=== PATIENT | male | born 1930 | race Caucasian/White ===

== ENCOUNTER 2017-12-15 19:12 | Inpatient (IN) | payer MEDICARE, OTHER ==
--- NOTE | 2017-12-15 19:43 | ED PDOC ---
Arrival/HPI - General Historian: Patient - History of Present Illness Narrative History of Present Illness (Text): 12/15/17 21:34 87 year old male, whose past medical history includes hypertension, hyperlipidemia, COPD, and a rt nephrectomy due to kidney cancer (never treated with chemo), who presents to the ED complaining of redness, swelling, and pain to the left calf x 4 days. Patient states he arrived from a 12 hour flight from [place] 5-6 days ago. Patient states the next day he began experiencing symptoms. Patient visited an ED in [place], where he had bloodwork done, BUN was 40 and creatin was 1.8. Ultrasound performed, no DVT or clot was found. Pt was told he had an 11cm lesion on his knee. Pt was told of possible differential of hematoma, abscess, or cyst. Patient was d/c with no antibiotics and told to f/u with outpatient. Patient followed up with PMD, who sent patient to ED for CT for further evaluation. Patient denies any fever, chills, SOB, chest pain, back pain, neck pain, abdominal pain, n/v/d, or any other complaints. Time/Duration: < week (4 days) Symptom Onset: Sudden Symptom Course: Unchanged Activities at Onset: Light Context: Home <Sherlyn Archer PA-C - Last Filed: 12/16/17 00:24> <Gris Hurtado - Last Filed: 12/17/17 15:32> - General Chief Complaint: Lower Extremity Problem/Injury Time Seen by Provider: 12/15/17 19:42 Past Medical History - Provider Review Nursing Documentation Reviewed: Yes <Sherlyn Archer PA-C - Last Filed: 12/16/17 00:24> - Travel History If Yes, travel location?: [place] - Infectious Disease Hx of Infectious Diseases: None - Tetanus Immunization Tetanus Immunization: Unknown - Cardiac Hx Hypertension: Yes - Hematological/Oncological Hx Blood Transfusions: No Hx Blood Transfusion Reaction: No - Psychiatric Hx Depression: No Hx Emotional Abuse: No Hx Physical Abuse: No Hx Substance Use: No - Anesthesia Hx Anesthesia: Yes Hx Anesthesia Reactions: No Hx Malignant Hyperthermia: No - Suicidal Assessment Feels Threatened In Home Enviroment: No <Gris Hurtado - Last Filed: 12/17/17 15:32> Family/Social History - Physician Review Nursing Documentation Reviewed: Yes Family/Social History: Unknown Family HX <Sherlyn Archer PA-C - Last Filed: 12/16/17 00:24> Smoking Status: Never Smoked Hx Alcohol Use: No Hx Substance Use: No Hx Substance Use Treatment: No <Gris Hurtado - Last Filed: 12/17/17 15:32> Allergies/Home Meds <Sherlyn Archer PA-C - Last Filed: 12/16/17 00:24> <Gris Hurtado - Last Filed: 12/17/17 15:32> Allergies/Adverse Reactions: Allergies FISH Allergy (Mild, Verified 12/15/17 19:30) CONGESTION Penicillins Allergy (Verified 12/15/17 20:40) RASH Sulfa (Sulfonamide Antibiotics) Allergy (Verified 12/15/17 20:40) RASH EGGS Allergy (Mild, Uncoded 12/15/17 19:30) CONGESTION Home Medications: Home Meds Medication Instructions Recorded Confirmed Atorvastatin Calcium [Lipitor] 10 mg PO DAILY 12/28/12 12/15/17 Doxazosin Mesylate 8 mg PO DAILY 12/28/12 12/15/17 Finasteride 5 mg PO DAILY 12/28/12 12/15/17 Olmesartan/Hydrochlorothiazide 1 tab PO DAILY 12/28/12 12/15/17 [Benicar Hct 12.5 mg-40 mg] Tiotropium [Spiriva] 18 mcg IH DAILY 12/15/17 12/15/17 Review of Systems - Physician Review All systems were reviewed & negative as marked: Yes - Review of Systems Constitutional: Normal Eyes: Normal ENT: Normal Respiratory: Normal. absent: SOB, Cough Cardiovascular: Normal. absent: Chest Pain Gastrointestinal: Normal. absent: Abdominal Pain, Diarrhea, Nausea, Vomiting Genitourinary Male: Normal. absent: Dysuria, Frequency Musculoskeletal: Other (left calf swelling and pain). absent: Back Pain, Neck Pain Skin: Other (left calf redness) Neurological: Normal. absent: Headache, Dizziness Endocrine: Normal Hemo/Lymphatic: Normal Psychiatric: Normal <Sherlyn Archer PA-C - Last Filed: 12/16/17 00:24> Physical Exam Vital Signs Reviewed: Yes Vital Signs Temp Pulse Resp BP Pulse Ox 12/15/17 19:23 98.9 F 102 H 19 134/81 98 Temperature: Afebrile Blood Pressure: Normal Pulse: Tachycardic Respiratory Rate: Normal Appearance: Positive for: Well-Appearing, Non-Toxic, Comfortable Pain Distress: None Mental Status: Positive for: Alert and Oriented X 3 - Systems Exam Head: Present: Atraumatic, Normocephalic Pupils: Present: PERRL Extroacular Muscles: Present: EOMI Conjunctiva: Present: Normal Mouth: Present: Moist Mucous Membranes Neck: Present: Normal Range of Motion Respiratory/Chest: Present: Clear to Auscultation, Good Air Exchange. No: Respiratory Distress, Accessory Muscle Use Cardiovascular: Present: Regular Rate and Rhythm, Normal S1, S2. No: Murmurs Abdomen: No: Tenderness, Distention, Peritoneal Signs Back: Present: Normal Inspection Upper Extremity: Present: Normal Inspection. No: Cyanosis, Edema Lower Extremity: Present: Tenderness (left calf), Swelling (moderate swelling from L calf to foot), Erythema (warm to touch, erythematous left calf), Neurovascularly Intact, Capillary Refill < 2 s. No: Edema Neurological: Present: GCS=15, CN II-XII Intact, Speech Normal Skin: Present: Warm, Dry, Normal Color. No: Rashes Psychiatric: Present: Alert, Oriented x 3, Normal Insight, Normal Concentration <Sherlyn Archer PA-C - Last Filed: 12/16/17 00:24> Vital Signs Temp Pulse Resp BP Pulse Ox 12/15/17 19:23 98.9 F 102 H 19 134/81 98 <Gris Hurtado - Last Filed: 12/17/17 15:32> Medical Decision Making ED Course and Treatment: 12/15/17 22:17 Impression: 87 year old male presents to the ED complaining of redness, swelling, and pain to left calf x 4 days. Plan: -- CT LLE -- EKG -- CXR -- Blood Culture -- UA -- US LLE Progress Notes: US LLE : no DVT, +6 cm pedersen's cyst, as per US tech. Labs : wbc wnl, bun 38, creat 1.7 VS : T 98 P 78 BP 130/82 O2sat 99%RA CT left tibia/fibula reviewed, shows: Impression: 1. No acute fracture or traumatic injury. 2. Small knee joint effusion. 3. Mild osteoarthritis of the left knee. 4. Mild diffuse edema and swelling throughout the lower leg extending into the ankle. 5. Fatty atrophy of the musculature in the posterior compartment On re-evaluation, patient reports no CP, or SOB. On exam, patient remains AAOx3, in no acute distress. L Diagnostic results d/w the patient in great detail. Diagnosis of cellulitis d/w the patient. Based on history, exam and diagnostic results, plan will be for observation for IV antibiotics. Case d/w chief medical technologist and with Dr. Torrez, who agrees with plan for further observation under the hospitalist service. Patient states he fully agrees with and understands plan for further care and treatment. I have given the patient opportunity to ask any additional questions. <Sherlyn Archer PA-C - Last Filed: 12/16/17 00:24> - PA / MEDICAL FILE CLERK / Resident Statement THOMAS has reviewed & agrees with the documentation as recorded. - Scribe Statement The provider has reviewed the documentation as recorded by the Scribe Lo Isaacs All medical record entries made by the Scribe were at my direction and personally dictated by me. I have reviewed the chart and agree that the record accurately reflects my personal performance of the history, physical exam, medical decision making, and the department course for this patient. I have also personally directed, reviewed, and agree with the discharge instructions and disposition. <Sherlyn Archer PA-C - Last Filed: 12/16/17 00:24> - PA / MEDICAL FILE CLERK / Resident Statement THOMAS has reviewed & agrees with the documentation as recorded. <Grsi Hurtado - Last Filed: 12/17/17 15:32> Disposition/Present on Arrival - Present on Arrival Any Indicators Present on Arrival: No History of DVT/PE: No History of Uncontrolled Diabetes: No Urinary Catheter: No History of Decub. Ulcer: No - Disposition Have Diagnosis and Disposition been Completed?: Yes Disposition Time: 23:00 Patient Plan: Observation <Sherlyn Archer PA-C - Last Filed: 12/16/17 00:24> - Present on Arrival History of DVT/PE: No History of Uncontrolled Diabetes: No Urinary Catheter: No History of Decub. Ulcer: No History Surgical Site Infection Following: None <Gris Hurtado - Last Filed: 12/17/17 15:32> - Disposition Diagnosis: Cellulitis Disposition: HOSPITALIZED Patient Problems: Current Active Problems Problem Status Onset Cellulitis Acute Condition: STABLE
[2017-12-15 21:30] LABS: BASO # 0.03 K/mm3 (0.0-2.0); BASO % 0.4 % (0.0-3.0); EOS # 0.5 (0.0-0.7); EOS % 6.4 % (1.5-5.0); GRAN # 4.7 (1.4-6.5); GRAN % 55.8 % (50.0-68.0); LYMPH # 2.5 (1.2-3.4); MEAN CELL VOLUME 92.6 fl (80.0-105.0); MEAN CORPUSCULAR HEMOGLOBIN 31.4 pg (25.0-35.0); MEAN PLATELET VOLUME 10.5 fl (7.0-11.0); MONO # 0.6 (0.1-0.6); MONO % 7.4 % (1.0-6.0); RBC 3.5 10^6/uL (3.5-6.1); RED CELL DISTRIBUTION WIDTH 13.6 % (11.5-14.5); WHITE BLOOD COUNT 8.4 10^3/ul (4.5-11.0)
[2017-12-15 21:34] LABS: INR 1.05; PARTIAL THROMBOPLASTIN TIME 29.4 Seconds (25.1-36.5)
[2017-12-15 21:41] LABS: ALB/GLOB RATIO 1.1 (1.1-1.8); ALBUMIN 3.8 g/dL (3.0-4.8); CALCIUM 9.1 mg/dL (8.4-10.5)
[2017-12-15] MEDS ORDERED: Vancomycin 1gm in NS 250ml 1 GM/250 ML BAG IVPB STA (22:45)
[2017-12-15] MEDS ORDERED: Clindamycin in D5W 300 MG/50 ML BAG IV STA (22:49)
[2017-12-15] MEDS ORDERED: Sodium Chloride 0.9% 1,000 ML IV SCH (23:45)
[2017-12-15 23:55] LABS: URINE BILIRUBIN NEGATIVE (NEGATIVE); URINE BLOOD NEGATIVE (NEGATIVE); URINE GLUCOSE (UA) NEGATIVE (NEGATIVE); URINE LEUKOCYTE ESTERASE NEGATIVE Leu/uL (NEGATIVE); URINE PROTEIN NEGATIVE mg/dL (<30 mg/dL); URINE UROBILINOGEN 0.2 E.U./dL (<1 E.U./dL)
[2017-12-16 00:09] LABS: URINE APPEARANCE CLEAR (CLEAR); URINE COLOR LIGHT YELLOW (YELLOW)
--- NOTE | 2017-12-16 00:24 | CP.PCM.HP ---
<Marlo Solano - Last Filed: 12/16/17 00:35> History of Present Illness - History of Present Illness History of Present Illness: Marlo Solano, PGy-1 History and Physical for Hospitalist Service CC: RLE Swelling HPI: 87 M with PMHx of R renal cell carcinoma s/p R nephrectomy, HTN, HLD, COPD, BPH, and DILLON on night home O2 who presents with redness, swelling, and pain to the left calf x 3 days. Patient states he arrived from a 12 hour flight from [place] 6 days ago, and the the next day he began experiencing symptoms of sharp L calf pain. Patient visited a satellite site in [place], where an ultrasound was performed. Per the patient the imaging showed no DVT or clot found. Patient was informed he had an unknown 11cm lesion on his knee, with possible differential of hematoma, abscess, or cyst. Patient was discharged without antibiotics and told to follow up with outpatient with primary care physician. Patient followed up, and PCP sent patient to ED for CT of LLE for further evaluation. Patient denies any fever, chills, SOB, chest pain, palpitations, back pain, neck pain, abdominal pain, n/v/d, or any changes to urinary and bowel habits. No recent history of Calcium channel natali usage. PMHx: as above PSHx: R nephrectomy All: Fish, PCN, Sulfas Social: denies ETOH ,tobacco and substance abuse Fam hx: no heme/clotting disorders, no hx of DVT Meds: Benicar 12.5 mg PO, Lipitor 10 mg PO, Finasteride 5 mg PO, Doxazosin 8 mg PO PCP: Dr. Vazquez Present on Admission - Present on Admission Any Indicators Present on Admission: No History of DVT/PE: No Review of Systems - Review of Systems Review of Systems: 12 point ROS completed and negative except as described in HPI. Past Patient History - Infectious Disease Hx of Infectious Diseases: None - Tetanus Immunizations Tetanus Immunization: Unknown - Past Social History Smoking Status: Never Smoked - CARDIAC Hx Hypertension: Yes - HEMATOLOGICAL/ONCOLOGICAL Hx Blood Transfusions: No Hx Blood Transfusion Reaction: No - PSYCHIATRIC Hx Depression: No Hx Emotional Abuse: No Hx Physical Abuse: No Hx Substance Use: No - SURGICAL HISTORY Hx Surgeries: Yes (HERNIA MANY YEARS AGO) - ANESTHESIA Hx Anesthesia: Yes Hx Anesthesia Reactions: No Hx Malignant Hyperthermia: No Meds Allergies/Adverse Reactions: Allergies Allergy/AdvReac Type Severity Reaction Status Date / Time FISH Allergy Mild CONGESTION Verified 12/15/17 19:30 Penicillins Allergy RASH Verified 12/15/17 20:40 Sulfa (Sulfonamide Allergy RASH Verified 12/15/17 20:40 Antibiotics) EGGS Allergy Mild CONGESTION Uncoded 12/15/17 19:30 Physical Exam - Constitutional Appears: Well, Non-toxic, No Acute Distress - Head Exam Head Exam: ATRAUMATIC, NORMOCEPHALIC - Eye Exam Eye Exam: EOMI, Normal appearance Pupil Exam: PERRL - ENT Exam ENT Exam: Mucous Membranes Dry - Neck Exam Neck exam: Positive for: Normal Inspection - Respiratory Exam Respiratory Exam: Clear to Auscultation Bilateral, NORMAL BREATHING PATTERN - Cardiovascular Exam Cardiovascular Exam: RRR, +S1, +S2 - GI/Abdominal Exam GI & Abdominal Exam: Normal Bowel Sounds, Soft. absent: Distended, Firm, Guarding, Hernia, Pulsatile Mass, Rebound, Rigid, Tenderness Additional comments: No obvious scar from nephrectomy appreciated. - Expanded Lower Extremities Exam Left Knee exam: swelling (L>R). absent: crepitus, deformity, tenderness Lower Leg Exam: erythema, Lisette's sign, swelling, tenderness Ankle exam: erythema, swelling Foot/Toe exam: swelling, tenderness Neuro vacular tendon exam: absent: abnormal 2-point discrimination, abnormal cap refill - Back Exam Back exam: NORMAL INSPECTION - Neurological Exam Neurological exam: Alert, CN II-XII Intact, Oriented x3 - Psychiatric Exam Psychiatric exam: Normal Affect, Normal Mood - Skin Skin Exam: Dry, Intact Results - Vital Signs Recent Vital Signs: Last Vital Signs Temp 98.2 F 12/15/17 22:26 Pulse 81 12/15/17 23:34 Resp 18 12/15/17 23:34 BP 173/79 H 12/15/17 23:34 Pulse Ox 97 12/15/17 23:34 - Labs Result Diagrams: 12/15/17 21:05 12/15/17 21:05 Labs: Laboratory Results - last 24 hr 12/15/17 12/15/17 12/15/17 21:05 21:05 21:05 WBC 8.4 RBC 3.50 Hgb 11.0 L Hct 32.4 L MCV 92.6 MCH 31.4 MCHC 34.0 RDW 13.6 Plt Count 240 MPV 10.5 Gran % 55.8 Lymph % (Auto) 30.0 [place] % (Auto) 7.4 H Eos % (Auto) 6.4 H Baso % (Auto) 0.4 Gran # 4.70 Lymph # (Auto) 2.5 [place] # (Auto) 0.6 Eos # (Auto) 0.5 Baso # (Auto) 0.03 PT 12.0 INR 1.05 APTT 29.4 Sodium 135 Potassium 4.7 Chloride 100 Carbon Dioxide 25 Anion Gap 14 BUN 38 H Creatinine 1.7 H Est GFR ( Amer) 47 Est GFR (Non-Af Amer) 38 Random Glucose 100 Calcium 9.1 Magnesium 2.2 Total Bilirubin 0.4 AST 28 ALT 27 Alkaline Phosphatase 80 Total Protein 7.3 Albumin 3.8 Globulin 3.5 Albumin/Globulin Ratio 1.1 Urine Color Urine Appearance Urine pH Ur Specific [place] Urine Protein Urine Glucose (UA) Urine Ketones Urine Blood Urine Nitrate Urine Bilirubin Urine Urobilinogen Ur Leukocyte Esterase 12/15/17 22:41 WBC RBC Hgb Hct MCV MCH MCHC RDW Plt Count MPV Gran % Lymph % (Auto) [place] % (Auto) Eos % (Auto) Baso % (Auto) Gran # Lymph # (Auto) [place] # (Auto) Eos # (Auto) Baso # (Auto) PT INR APTT Sodium Potassium Chloride Carbon Dioxide Anion Gap BUN Creatinine Est GFR ( Amer) Est GFR (Non-Af Amer) Random Glucose Calcium Magnesium Total Bilirubin AST ALT Alkaline Phosphatase Total Protein Albumin Globulin Albumin/Globulin Ratio Urine Color Light yellow Urine Appearance Clear Urine pH 7.0 Ur Specific [place] <= 1.005 Urine Protein Negative Urine Glucose (UA) Negative Urine Ketones Negative Urine Blood Negative Urine Nitrate Negative Urine Bilirubin Negative Urine Urobilinogen 0.2 Ur Leukocyte Esterase Negative Assessment & Plan - Assessment and Plan (Free Text) Assessment: Assessment: 87 M with PMHx of R renal cell carcinoma s/p R nephrectomy, HTN, HLD, COPD, BPH, and DILLON on night home O2 who presents with LLE venous stasis vs cellulitis vs DVT. Plan: Venous stasis 2/2 6 cm Knox's cyst on U/S vs cellulitis r/o DVT Recent hx of long plane ride Prelim U/S on the telephone was reported as 6 cm Knox's cyst. No DVT. Prelim CT LLE shows no acute fracture. Small knee joint effusion. Mild OA of L knee. Mild diffuse edema and swelling throughout lower leg into ankle. F/u final read in AM. Leg elevations, Warm compresses Clinda 600 q8 for cellulitic soft skin infxn coverage Tylenol 600 mg q6 PRN for pain Heparin SC Light hydration at 70 cc/hr f/u Am labs HTN c/w home Losartan and HCTZ HLD c/w home Lipitor 10 mg f/u lipid panel and a1c COPD/DILLON O2, Spiriva PRN BPH c/w home finasteride 5 mg GI/DVT Ppx Heparin 5000 q8 Dispo: Spoke with son Dominguez, a neurologist in [place], twice over phone regarding care of patient. D Patient seen, case reviewed, and plan approved by Dr. Torrez. Marlo Solano, PGY-1 <Lorena Torrez - Last Filed: 12/16/17 01:55> Results - Vital Signs Recent Vital Signs: Last Vital Signs Temp 98.2 F 12/16/17 01:48 Pulse 83 12/16/17 01:48 Resp 18 12/16/17 01:48 BP 146/79 12/16/17 01:48 Pulse Ox 99 12/16/17 01:48 - Labs Result Diagrams: 12/15/17 21:05 12/15/17 21:05 Labs: Laboratory Results - last 24 hr 12/15/17 12/15/17 12/15/17 21:05 21:05 21:05 WBC 8.4 RBC 3.50 Hgb 11.0 L Hct 32.4 L MCV 92.6 MCH 31.4 MCHC 34.0 RDW 13.6 Plt Count 240 MPV 10.5 Gran % 55.8 Lymph % (Auto) 30.0 [place] % (Auto) 7.4 H Eos % (Auto) 6.4 H Baso % (Auto) 0.4 Gran # 4.70 Lymph # (Auto) 2.5 [place] # (Auto) 0.6 Eos # (Auto) 0.5 Baso # (Auto) 0.03 PT 12.0 INR 1.05 APTT 29.4 Sodium 135 Potassium 4.7 Chloride 100 Carbon Dioxide 25 Anion Gap 14 BUN 38 H Creatinine 1.7 H Est GFR ( Amer) 47 Est GFR (Non-Af Amer) 38 Random Glucose 100 Calcium 9.1 Magnesium 2.2 Total Bilirubin 0.4 AST 28 ALT 27 Alkaline Phosphatase 80 Total Protein 7.3 Albumin 3.8 Globulin 3.5 Albumin/Globulin Ratio 1.1 Urine Color Urine Appearance Urine pH Ur Specific [place] Urine Protein Urine Glucose (UA) Urine Ketones Urine Blood Urine Nitrate Urine Bilirubin Urine Urobilinogen Ur Leukocyte Esterase 12/15/17 22:41 WBC RBC Hgb Hct MCV MCH MCHC RDW Plt Count MPV Gran % Lymph % (Auto) [place] % (Auto) Eos % (Auto) Baso % (Auto) Gran # Lymph # (Auto) [place] # (Auto) Eos # (Auto) Baso # (Auto) PT INR APTT Sodium Potassium Chloride Carbon Dioxide Anion Gap BUN Creatinine Est GFR ( Amer) Est GFR (Non-Af Amer) Random Glucose Calcium Magnesium Total Bilirubin AST ALT Alkaline Phosphatase Total Protein Albumin Globulin Albumin/Globulin Ratio Urine Color Light yellow Urine Appearance Clear Urine pH 7.0 Ur Specific [place] <= 1.005 Urine Protein Negative Urine Glucose (UA) Negative Urine Ketones Negative Urine Blood Negative Urine Nitrate Negative Urine Bilirubin Negative Urine Urobilinogen 0.2 Ur Leukocyte Esterase Negative Attending/Attestation - Attestation I have personally seen and examined this patient.: Yes I have fully participated in the care of the patient.: Yes I have reviewed all pertinent clinical information: Yes Notes (Text): 12/16/17 01:54 Stop IVF
[2017-12-16 04:30] VITALS: BMI 27.6
[2017-12-16 07:53] LABS: BASO # 0.02 K/mm3 (0.0-2.0); BASO % 0.3 % (0.0-3.0); EOS # 0.5 (0.0-0.7); EOS % 8.1 % (1.5-5.0); GRAN # 3.45 (1.4-6.5); HEMOGLOBIN 10.6 g/dL (14.0-18.0); LYMPH % 30.6 % (22.0-35.0); MEAN CELL VOLUME 92.4 fl (80.0-105.0); MEAN CORPUSCULAR HEMOGLOBIN 31.1 pg (25.0-35.0); MEAN CORPUSCULAR HGB CONC 33.7 g/dl (31.0-37.0); MEAN PLATELET VOLUME 10.8 fl (7.0-11.0); MONO # 0.5 (0.1-0.6); RBC 3.41 10^6/uL (3.5-6.1); RED CELL DISTRIBUTION WIDTH 13.6 % (11.5-14.5); WHITE BLOOD COUNT 6.4 10^3/ul (4.5-11.0)
--- NOTE | 2017-12-16 08:28 | CT ---
Date of service: 12/15/2017 PROCEDURE: CT left lower extremity. HISTORY: L leg swelling, ?mass seen in knee, r/o abscess COMPARISON: None TECHNIQUE: 2.5 mm axial acquisition and display. Coronal and sagittal reconstructions. Dose report (mGy-cm): 378.81 FINDINGS: Negative study for osteomyelitis. Diffuse lower extremity cellulitis. Small suprapatellar joint effusion. No abscess or drainable collection. IMPRESSION: Diffuse left lower extremity cellulitis. Concordant results (preliminary interpretation) provided by DASH MARIN. Procedure Completed: 21:35 Preliminary Report: Dictated and Authenticated: 10:30. Final Interpretation: 08:23. 12/16/2017
[2017-12-16] MEDS: Clindamycin 600mg/50ml D5W 600 MG/50 ML VIAL IVPB SCH ×3 (09:00→23:38)
[2017-12-16] MEDS: Tiotropium 18 mcg Cap For Inhalation IH SCH (10:00)
[2017-12-16] MEDS ORDERED: Non Formulary Medication (Olmesartan/Hydrochlorothiazide [Benicar Hct 40-12.5 Mg Tablet] 1 PO SCH (10:00)
--- NOTE | 2017-12-16 10:24 | RAD ---
Date of service: 12/15/2017 HISTORY: L leg swelling COMPARISON: 12/29/2012 TECHNIQUE: Chest PA and lateral FINDINGS: LUNGS: No active pulmonary disease. PLEURA: No significant pleural effusion identified. No pneumothorax apparent. CARDIOVASCULAR: No atherosclerotic calcification present No radiographic findings to suggest acute or significant cardiovascular disease. OSSEOUS STRUCTURES: No significant abnormalities. VISUALIZED UPPER ABDOMEN: Normal. OTHER FINDINGS: Stable elevation right hemidiaphragm. IMPRESSION: No active disease. No significant interval change compared to the prior examination(s).
--- NOTE | 2017-12-16 11:51 | CARD ---
APPROVED REPORT Date of service: 12/15/2017 EKG Measurement Heart [id number] <Conclusion> Normal sinus rhythm Normal ECG
[2017-12-16] MEDS ORDERED: MethylPREDNISolone Depo 40 mg/ml Inj IM ONE (13:09)
[2017-12-16] MEDS ORDERED: Bupivacaine 0.5% Inj(30mL) IJ ONE (13:09)
[2017-12-16] MEDS ORDERED: Oxycodone/Acetaminophen 5/325 mg Tab PO PRN (13:47)
[2017-12-16] MEDS ORDERED: Sodium Chloride 0.9% 1,000 ML IV SCH (14:00)
[2017-12-17] MEDS: Pantoprazole 40 mg EC Tab PO SCH (06:32)
[2017-12-17] MEDS: Clindamycin 600mg/50ml D5W 600 MG/50 ML VIAL IVPB SCH ×2 (08:00→17:12)
[2017-12-17] MEDS: Tiotropium 18 mcg Cap For Inhalation IH SCH (09:37)
[2017-12-17 10:17] LABS: BASO # 0.04 K/mm3 (0.0-2.0); BASO % 0.8 % (0.0-3.0); EOS # 0.5 (0.0-0.7); EOS % 9.5 % (1.5-5.0); GRAN # 2.3 (1.4-6.5); GRAN % 45.6 % (50.0-68.0); HEMOGLOBIN 11.8 g/dL (14.0-18.0); LYMPH # 1.8 (1.2-3.4); MEAN CELL VOLUME 94.4 fl (80.0-105.0); MEAN CORPUSCULAR HEMOGLOBIN 31.5 pg (25.0-35.0); MEAN CORPUSCULAR HGB CONC 33.3 g/dl (31.0-37.0); MEAN PLATELET VOLUME 10.9 fl (7.0-11.0); MONO # 0.4 (0.1-0.6); MONO % 8.1 % (1.0-6.0); RBC 3.75 10^6/uL (3.5-6.1); RED CELL DISTRIBUTION WIDTH 13.6 % (11.5-14.5); WHITE BLOOD COUNT 5.1 10^3/ul (4.5-11.0)
--- NOTE | 2017-12-17 10:53 | RAD ---
Date of service: 12/17/2017 PROCEDURE: Bilateral Knee Radiographs. HISTORY: Pain. No history of recent/ related trauma provided COMPARISON: None. FINDINGS: BONES: Right Knee: Normal. No fracture. Left Knee: Normal. No fracture. JOINTS: Right Knee: Mild medial compartment narrowing. Left knee: Symmetrical medial compartment narrowing. SOFT TISSUES: Right Knee: Normal. Left Knee: Normal. JOINT EFFUSION: Cannot be determined in the absence of lateral views. OTHER FINDINGS: None. IMPRESSION: Mild osteoarthritic changes confined to medial compartments bilaterally. Limitations of the current examination: Nondiagnostic assessment of patella/patellofemoral joint.
[2017-12-17 10:56] LABS: ALB/GLOB RATIO 1.1 (1.1-1.8); ALBUMIN 3.9 g/dL (3.0-4.8); CALCIUM 9.3 mg/dL (8.4-10.5)
--- NOTE | 2017-12-17 11:22 | CP.PCM.PN ---
<Yasmani Garcia - Last Filed: 12/17/17 11:19> Subjective - Date & Time of Evaluation Date of Evaluation: 12/17/17 Time of Evaluation: 11:19 - Subjective Subjective: Patient seen and examined at bedside. Patient admits to pain in his left leg and trouble walking. Patient denies chest pain, shortness of breath, nausea, vomiting, diarrhea, fever, chills. Objective - Vital Signs/Intake and Output Vital Signs (last 24 hours): Temp Pulse Resp BP Pulse Ox 97.7 F 85 20 141/80 95 12/17/17 07:41 12/17/17 07:41 12/17/17 07:41 12/17/17 07:41 12/17/17 07:41 Intake and Output: 12/17/17 12/17/17 06:59 18:59 Intake Total 1020 Output Total 800 Balance 220 - Medications Medications: Current Medications Acetaminophen (Tylenol 325mg Tab) 650 mg PO Q6H PRN PRN Reason: Pain, moderate (4-7) Atorvastatin Calcium (Lipitor) 10 mg PO HS [facility] Last Admin: 12/16/17 21:37 Dose: 10 mg Doxazosin Mesylate (Cardura) 8 mg PO HS [facility] Last Admin: 12/16/17 21:37 Dose: 8 mg Finasteride (Proscar) 5 mg PO DAILY [facility] Last Admin: 12/17/17 09:36 Dose: 5 mg Heparin Sodium (Porcine) (Heparin) 5,000 units SC Q8H [facility]; Protocol Last Admin: 12/17/17 09:36 Dose: 5,000 units Clindamycin Phosphate (Cleocin) 600 mg in 50 mls @ 50 mls/hr IVPB Q8H [facility]; Protocol Last Admin: 12/17/17 08:00 Dose: 50 mls/hr Losartan Potassium (Cozaar) 100 mg PO DAILY [facility] Last Admin: 12/17/17 09:35 Dose: 100 mg Oxycodone/Acetaminophen (Percocet 5/325 Mg Tab) 1 tab PO Q6H PRN PRN Reason: Pain, severe (8-10) Stop: 12/19/17 13:48 Pantoprazole Sodium (Protonix Ec Tab) 40 mg PO 0600 [facility] Last Admin: 12/17/17 06:32 Dose: Not Given Tiotropium [place] (Spiriva) 18 mcg IH DAILY [facility] Last Admin: 12/17/17 09:37 Dose: 18 mcg - Labs Labs: 12/17/17 10:00 12/17/17 08:31 PT 12.0 SECONDS (9.4-12.5) 12/15/17 21:05 INR 1.05 12/15/17 21:05 APTT 29.4 Seconds (25.1-36.5) 12/15/17 21:05 - Constitutional Appears: Non-toxic, No Acute Distress - Head Exam Head Exam: ATRAUMATIC, NORMAL INSPECTION, NORMOCEPHALIC - ENT Exam ENT Exam: Mucous Membranes Moist - Respiratory Exam Respiratory Exam: Clear to Ausculation Bilateral, NORMAL BREATHING PATTERN - Cardiovascular Exam Cardiovascular Exam: RRR, +S1, +S2 - GI/Abdominal Exam GI & Abdominal Exam: Soft, Normal Bowel Sounds. absent: Tenderness - Extremities Exam Extremities Exam: Pedal Edema (Mild left sided) - Neurological Exam Neurological Exam: Alert, Awake, CN II-XII Intact - Psychiatric Exam Psychiatric exam: Normal Affect, Normal Mood - Skin Skin Exam: Dry, Erythema (On left medial aspect of calf), Intact, Warm Assessment and Plan - Assessment and Plan (Free Text) Plan: 87 M with PMHx of R renal cell carcinoma s/p R nephrectomy, HTN, HLD, COPD, BPH, and DILLON presents with left lower extremity cellulitis. Left lower extremity cellulitis Lower extremity CT displays left leg cellulitis Continue Clindamycin Tylenol 600 mg q6 PRN for pain Physical therapy ordered Left leg knox cyst Prelim lower extremity ultrasound shows no DVT, but knox cyst Orthopedics consulted, concerned for DVT. Will repeat lower extremity US DWAYNE Improved, creatinine 1.5 from 1.7 HTN Continue home Losartan and HCTZ HLD Continue home Lipitor 10 mg COPD/DILLON Continue O2, Spiriva PRN BPH Continue home finasteride 5 mg GI/DVT Ppx Heparin Protonix Gioagmirnandin, PGY-3 <Bia Asencio - Last Filed: 12/17/17 12:15> Objective - Vital Signs/Intake and Output Vital Signs (last 24 hours): Temp Pulse Resp BP Pulse Ox 97.7 F 85 20 141/80 95 12/17/17 07:41 12/17/17 07:41 12/17/17 07:41 12/17/17 07:41 12/17/17 07:41 Intake and Output: 12/17/17 12/17/17 06:59 18:59 Intake Total 1020 Output Total 800 Balance 220 - Medications Medications: Current Medications Acetaminophen (Tylenol 325mg Tab) 650 mg PO Q6H PRN PRN Reason: Pain, moderate (4-7) Atorvastatin Calcium (Lipitor) 10 mg PO HS [facility] Last Admin: 12/16/17 21:37 Dose: 10 mg Doxazosin Mesylate (Cardura) 8 mg PO HS [facility] Last Admin: 12/16/17 21:37 Dose: 8 mg Finasteride (Proscar) 5 mg PO DAILY [facility] Last Admin: 12/17/17 09:36 Dose: 5 mg Heparin Sodium (Porcine) (Heparin) 5,000 units SC Q8H [facility]; Protocol Last Admin: 12/17/17 09:36 Dose: 5,000 units Clindamycin Phosphate (Cleocin) 600 mg in 50 mls @ 50 mls/hr IVPB Q8H [facility]; Protocol Last Admin: 12/17/17 08:00 Dose: 50 mls/hr Losartan Potassium (Cozaar) 100 mg PO DAILY [facility] Last Admin: 12/17/17 09:35 Dose: 100 mg Oxycodone/Acetaminophen (Percocet 5/325 Mg Tab) 1 tab PO Q6H PRN PRN Reason: Pain, severe (8-10) Stop: 12/19/17 13:48 Pantoprazole Sodium (Protonix Ec Tab) 40 mg PO 0600 [facility] Last Admin: 12/17/17 06:32 Dose: Not Given Tiotropium [place] (Spiriva) 18 mcg IH DAILY [facility] Last Admin: 12/17/17 09:37 Dose: 18 mcg - Labs Labs: 12/17/17 10:00 12/17/17 08:31 PT 12.0 SECONDS (9.4-12.5) 12/15/17 21:05 INR 1.05 12/15/17 21:05 APTT 29.4 Seconds (25.1-36.5) 12/15/17 21:05 Attending/Attestation - Attestation I have personally seen and examined this patient.: Yes I have fully participated in the care of the patient.: Yes I have reviewed all pertinent clinical information, including history, physical exam and plan: Yes Notes (Text): 12/17/17 12:11 Medical record note made by the resident after discussion with my direction and input after the patient was personally seen and examined by me. I have reviewed the chart and agree that the record accurately reflects by personal performance of the history, physical exam, data review, and medical decision-making, in the course for the patient. I have also personally directed the plan of care. 87 M with PMHx of R renal cell carcinoma s/p R nephrectomy, HTN, HLD, COPD, BPH, and DILLON on night home O2 who presents with redness, swelling, and pain to the left calf x 3 days. Doppler showed Knox cyst,there is no evidence of DVT on both doppler studies (official reading is pending).Patient pain is better. CT scan of lower extremity finding were suggestive of cellulitis, Continue Clindamycin for cellulitis as , clinically there is no redness.Overlying temperature is normal.Antibiotics can be discontinued quickly after total 5 days treatment. DWAYNE , Creatinin is back to base line, will stop HCTZ.Blood pressure is stable with Losartan. Phyysical therapy evaluation is pending.
--- NOTE | 2017-12-17 11:26 | RAD ---
Date of service: 12/17/2017 PROCEDURE: Left Knee Radiographs. HISTORY: Pain. No history of recent/ related trauma provided COMPARISON: None. FINDINGS: BONES: Normal. No fracture. JOINTS: Normal. No osteoarthritis. JOINT EFFUSION: None. OTHER FINDINGS: None. IMPRESSION: No significant or acute findings to account for/ related to the clinical presentation.
--- NOTE | 2017-12-17 11:38 | CON ---
DATE: 12/15/2017 HISTORY OF PRESENT ILLNESS: The patient is an 87-year-old male with history of coming back from [place] about a week ago and complaining of left calf pain today for two days. He has acute tenderness to the posterior calf muscles. Venous Doppler was done and from conversation with attending, it was negative, and there is suspicious of a popliteal cyst with infection, and I saw the CAT scan. There is no evidence of significant popliteal cyst that would cause his calf pain. He has mild osteoarthritis, and we had no x-ray of any sort to cover orthopedic diagnosis. I will order x-ray of the knee and standing x-rays, and I told him to repeat the venous Doppler, as that is not 100% full proof, but it certainly looks like he has a deep vein thrombosis of his left calf, as it is tender, and no evidence of compartment syndrome or significant swelling of the knee at all. So we are going to repeat the venous Doppler. I will not give him any orthopedic injections of cortisone. It may be good to have a consult with Dr. Darnell Nielson who could evaluate him a little more thoroughly, and he has more expertise with this condition. As he has a negative venous Doppler, it could still be a thrombosis, so orthopedically, we will just get an x-ray of the knee to make sure there is nothing else involved, and follow him and put him on DVT prophylaxis. Pravin Palomino DO
--- NOTE | 2017-12-17 16:51 | US ---
PROCEDURE: Left lower extremity venous US HISTORY: Leg pain and swelling. Evaluate for DVT. PHYSICIAN(S): Darnell Nielson MD. TECHNIQUE: Duplex sonography and color-flow Doppler with graded compression were used to evaluate the deep venous system of the left lower extremity. FINDINGS: The visualized deep venous system of the left lower extremity is sonographically normal and compressible. Normal wave forms and augmentation are seen. There is no sonographic evidence for deep venous thrombosis in the visualized segments of the left lower extremity. There is a 5 cm hypoechoic heterogeneous collection in the medial calf. The differential includes hematoma IMPRESSION: 1. No sonographic evidence for deep venous thrombosis in the visualized segments of the left lower extremity.
--- NOTE | 2017-12-17 16:55 | US ---
PROCEDURE: Left lower extremity venous US HISTORY: Leg pain and swelling. Evaluate for DVT. PHYSICIAN(S): Darnell Nielson MD. TECHNIQUE: Duplex sonography and color-flow Doppler with graded compression were used to evaluate the deep venous system of the left lower extremity. FINDINGS: The visualized deep venous system of the left lower extremity is sonographically normal and compressible. Normal wave forms and augmentation are seen. There is no sonographic evidence for deep venous thrombosis in the visualized segments of the left lower extremity. There is a 1.7 x 6.4 cm hypoechoic heterogeneous collection lateral to the knee. The differential includes hematoma. IMPRESSION: 1. No sonographic evidence for deep venous thrombosis in the visualized segments of the left lower extremity.
[2017-12-18] MEDS: Clindamycin 600mg/50ml D5W 600 MG/50 ML VIAL IVPB SCH ×3 (00:07→17:37)
[2017-12-18] MEDS: Pantoprazole 40 mg EC Tab PO SCH (05:24)
[2017-12-18 06:36] LABS: BASO # 0.03 K/mm3 (0.0-2.0); BASO % 0.6 % (0.0-3.0); EOS # 0.6 (0.0-0.7); EOS % 11.4 % (1.5-5.0); GRAN # 2.1 (1.4-6.5); GRAN % 39.2 % (50.0-68.0); HEMOGLOBIN 10.6 g/dL (14.0-18.0); LYMPH # 2.1 (1.2-3.4); LYMPH % 38.5 % (22.0-35.0); MEAN CELL VOLUME 93.8 fl (80.0-105.0); MEAN CORPUSCULAR HEMOGLOBIN 31.1 pg (25.0-35.0); MEAN CORPUSCULAR HGB CONC 33.1 g/dl (31.0-37.0); MEAN PLATELET VOLUME 10.1 fl (7.0-11.0); MONO # 0.6 (0.1-0.6); MONO % 10.3 % (1.0-6.0); RBC 3.41 10^6/uL (3.5-6.1); RED CELL DISTRIBUTION WIDTH 13.8 % (11.5-14.5); WHITE BLOOD COUNT 5.4 10^3/ul (4.5-11.0)
[2017-12-18 06:48] LABS: ALB/GLOB RATIO 0.9 (1.1-1.8); ALBUMIN 3.3 g/dL (3.0-4.8); CALCIUM 8.6 mg/dL (8.4-10.5)
--- NOTE | 2017-12-18 07:29 | CP.PCM.PN ---
Subjective - Date & Time of Evaluation Date of Evaluation: 12/18/17 Time of Evaluation: 07:29 - Subjective Subjective: PGY-1 Medicine Progress Note Patient seen and examined at bedside this AM, eating breakfast and in no acute distress. No acute overnight events reported. Pt reports improved erythema but continues to endorse LLE swelling, tendernes, and soft mass on the medial aspect of the posterior L calf. No fevers/chills, headaches, dizziness, changes in vision, chest pain, palpitations, sob, cough, abdominal pain, n/v/d/c, dysuria, or changes in stool. Objective - Vital Signs/Intake and Output Vital Signs (last 24 hours): Temp Pulse Resp BP Pulse Ox 97.7 F 76 20 143/84 97 12/17/17 15:49 12/17/17 15:49 12/17/17 15:49 12/17/17 15:49 12/17/17 15:49 Intake and Output: 12/18/17 12/18/17 06:59 18:59 Intake Total 230 Balance 230 - Medications Medications: Current Medications Acetaminophen (Tylenol 325mg Tab) 650 mg PO Q6H PRN PRN Reason: Pain, moderate (4-7) Atorvastatin Calcium (Lipitor) 10 mg PO HS [facility] Last Admin: 12/17/17 21:45 Dose: 10 mg Doxazosin Mesylate (Cardura) 8 mg PO HS [facility] Last Admin: 12/17/17 21:45 Dose: 8 mg Finasteride (Proscar) 5 mg PO DAILY [facility] Last Admin: 12/17/17 09:36 Dose: 5 mg Heparin Sodium (Porcine) (Heparin) 5,000 units SC Q8H [facility]; Protocol Last Admin: 12/18/17 02:52 Dose: Not Given Clindamycin Phosphate (Cleocin) 600 mg in 50 mls @ 50 mls/hr IVPB Q8H [facility]; Protocol Last Admin: 12/18/17 00:07 Dose: 50 mls/hr Losartan Potassium (Cozaar) 100 mg PO DAILY [facility] Last Admin: 12/17/17 09:35 Dose: 100 mg Oxycodone/Acetaminophen (Percocet 5/325 Mg Tab) 1 tab PO Q6H PRN PRN Reason: Pain, severe (8-10) Stop: 12/19/17 13:48 Pantoprazole Sodium (Protonix Ec Tab) 40 mg PO 0600 [facility] Last Admin: 12/18/17 05:24 Dose: 40 mg Tiotropium [place] (Spiriva) 18 mcg IH DAILY [facility] Last Admin: 12/17/17 09:37 Dose: 18 mcg - Labs Labs: 12/18/17 05:45 12/18/17 05:45 PT 12.0 SECONDS (9.4-12.5) 12/15/17 21:05 INR 1.05 12/15/17 21:05 APTT 29.4 Seconds (25.1-36.5) 12/15/17 21:05 - Constitutional Appears: Well, Non-toxic, No Acute Distress - Head Exam Head Exam: ATRAUMATIC, NORMAL INSPECTION, NORMOCEPHALIC - Eye Exam Eye Exam: EOMI, Normal appearance, PERRL Pupil Exam: NORMAL ACCOMODATION - ENT Exam ENT Exam: Mucous Membranes Moist, Normal Exam - Neck Exam Neck Exam: Full ROM - Respiratory Exam Respiratory Exam: Clear to Ausculation Bilateral, NORMAL BREATHING PATTERN. absent: Rales, Rhonchi, Wheezes - Cardiovascular Exam Cardiovascular Exam: REGULAR RHYTHM, +S1, +S2 - GI/Abdominal Exam GI & Abdominal Exam: Soft, Normal Bowel Sounds. absent: Distended, Firm, Guarding, Rigid, Tenderness, Rebound - Extremities Exam Extremities Exam: Calf Tenderness (Left), Full ROM, Normal Capillary Refill, No rmal Inspection Additional comments: Palpable nodule 5x10 cm medial aspect L posterior calf - Back Exam Back Exam: NORMAL INSPECTION - Neurological Exam Neurological Exam: Alert, Awake, CN II-XII Intact, Oriented x3 - Psychiatric Exam Psychiatric exam: Normal Affect, Normal Mood - Skin Skin Exam: Dry, Erythema (improved), Intact, Warm Assessment and Plan - Assessment and Plan (Free Text) Assessment: 87 yo [place] M with PMHx of R renal cell carcinoma s/p R nephrectomy, HTN, HLD, COPD, BPH, DILLON presenting with diffuse LLE cellulitis, r/o possible hematoma vs DVT. Plan: Diffuse LLE cellulitis, r/o possible hematoma vs DVT --pt is afebrile, no leukocytosis noted --L calf tenderness noted --palpable nodule posterior calf --Imaging -CT Lower extremity (12/15): diffuse LLE cellulitis -LE U/S (12/15): no evidence for DVT, 1.7x 6.4 cm heterogeneous collection lateral to the knee, differential includes hematoma -LE U/S (12/17): no evidence for DVT, 5 cm heterogeneous collection in media calf, differential includes hematoma --Ortho recs (Dr. Palomino) appreciated -MRI LE (12/18): 5.8x3.0x12.2 cm ovoid collection within posterior medial calf, appears to be about and/or originate at the fascial interface of the medial head of the gastrocnemius muscle. Apparent compressive mass effect on the medial head of the gastrocnemius muscle. Uncertain etiology, may represent a large hematoma. Additional consideration includes abscess collection vs underlying lesion. --Surgery recs (Dr. Briggs) appreciated -f/u CT venogram to r/o central venous thrombosis -c/w DVT PPx --Medications -Clindamycin 600 mg q8 -Tylenol 600 mg q6 PRN DWAYNE --Improved, creatinine 1.5 from 1.7 HTN --Continue home Losartan and HCTZ HLD --Continue home Lipitor 10 mg COPD/DILLON --Continue O2, Spiriva PRN BPH --Continue home finasteride 5 mg PPx, Diet, Disposition -DVT PPx: Heparin -GI PPx: Protonix -Diet: Case discussed with Dr. Sancho Paulino DO, PGY-1
--- NOTE | 2017-12-18 08:18 | PN ---
DATE: 12/18/2017 UPDATED REPORT LOCATION: In [facility], bed 1. SUBJECTIVE: The patient still has some discomfort in medial part of the left calf in the region of the plantaris muscle and the gastroc muscle medially. The CAT scan showed what was like a localized induration of the medial side of the left calf, so I am going to get an MRI to evaluate for soft tissue injury to the muscle or the fascia of that left leg, although no contrast we needed. There is no pacemaker. He does not feel any worse. He does have an induration or could be hematoma, but there are no signs of an infection on the lab work. The sed rate is mildly elevated. C-reactive protein was also a little elevated. So we will see what the MRI discloses. We will order that today of the left leg, but he could be up out of bed and ambulate. Pravin Palomino DO
[2017-12-18] MEDS: Tiotropium 18 mcg Cap For Inhalation IH SCH (09:17)
--- NOTE | 2017-12-18 12:45 | MRI ---
MRI left calf HISTORY: Lower extremity swelling. COMPARISON: CT scan dated 12/15/2017 Technique: Multi-echo multiplanar sequences were performed through the left calf without the use of intravenous contrast. Findings: Within the posterior medial calf, there is a large ovoid collection measuring 5.8 x 3.0 x 12.2 centimeters demonstrating heterogeneously mixed increased and decreased T1 signal with associated mix heterogeneously increased and decreased T2 signal. The collection appears to abut and or originate at the fascial interface of the medial head of the gastrocnemius muscle. There appears to be a compressive mass effect on the medial head of the gastrocnemius muscle; however, there may be a portion that emanates from the muscle belly. This is of uncertain clinical etiology and may represent a large complex hematoma/hematogenous collection. Additional considerations may include an abscess collection versus underlying lesion. Given the adherence to the underlying fascial planes as well as compression of the medial head of the gastrocnemius muscle an underlying compartment syndrome cannot entirely be excluded. Clinical correlation. Moderate to severe fatty atrophy of the medial and lateral heads of the gastrocnemius muscle as well as the soleus musculature. Reticulation and edema within the circumferential subcutaneous soft tissues which may represent underlying acute inflammatory and infectious changes. Osseous structures are grossly preserved. Impression: 1. Within the posterior medial calf, there is a large ovoid collection measuring 5.8 x 3.0 x 12.2 centimeters demonstrating heterogeneously mixed increased and decreased T1 signal with associated mix heterogeneously increased and decreased T2 signal. The collection appears to abut and or originate at the fascial interface of the medial head of the gastrocnemius muscle. There appears to be a compressive mass effect on the medial head of the gastrocnemius muscle; however, there may be a portion that emanates from the muscle belly. This is of uncertain clinical etiology and may represent a large complex hematoma/hematogenous collection. Additional considerations may include an abscess collection versus underlying lesion. Given the adherence to the underlying fascial planes as well as compression of the medial head of the gastrocnemius muscle an underlying compartment syndrome cannot entirely be excluded. Clinical correlation. 2. Moderate to severe fatty atrophy of the medial and lateral heads of the gastrocnemius muscle as well as the soleus musculature. 3. Reticulation and edema within the circumferential subcutaneous soft tissues which may represent underlying acute inflammatory and infectious changes. These findings were communicated with Dr. Palomino at 12:10 p.m. on 12/18/2017.
--- NOTE | 2017-12-18 14:00 | CP.PCM.CON ---
History of Present Illness - History of Present Illness History of Present Illness: Krysta Barlow, PGY-1, Surgery Consult Note for Dr. Briggs 87 year old male with past medical history of right renal cell carcinoma s/p R nephrectomy, HTN, HLD, COPD, BPH, DILLON presented with redness, warmth, swelling and pain for 3 days prior to presentation to emergency department 6 days after being on 12 hour flight to [place]. Patient reports sharp, intermittent left calf pain, as well as, edema below the left knee for 3 days. The edema spread from the foot upwards towards the knee. Patient reports that he has mild edema in his left foot generally, but he has never had this specific condition before. Patient visited satellite site in [place], where lower extremity ultrasound showed no evidence of DVT or clot. Patient was informed that he had a 11 cm lesion behind his knee with possible differential of hematoma, abscess, or cyst. Patient was discharged without medications and told to come to the emergency department by PCP. 2 more lower extremity ultrasound were performed showing no evidence of DVT. Lower extremity CT showed left lower extremity cellulitis. Lower extremity MRI showed large ovoid collection measuring 5.8x3.0x12.2 cm demonstrating heterogeneously mixed increased and decreased T1 signal and associated mix heterogeneously increased and decreased T2 signal. There appeared to be a compressive mass effect on the medial head of the gastrocnemius muscle, but there was a portion that emanates from the muscle belly. This was read as large complex hematoma/hematogenous collection vs. abscess collection vs. underlying lesion. Today, patient reports improved erythema but still complains of swelling, pain, and soft mass on posterior medial left calf. Patient denies chest pain, heart palpitations, shortness of breath, nausea, vomiting, constipation, diarrhea, abdominal pain, dysuria, and hematuria. Surgery was consulted for evaluation and management of cause of pain and mass. 12-point ROS was negative except for what was mentioned above. PMH: as above PSH: R nephrectomy ALL: Fish, PCN, sulfa drugs SHx: denies alcohol, tobacco and substance abuse FMHx: no heme/clotting disorders, no history of DVT Medications: benicar, lipitor, finasteride, doxasozin and aspirin PCP: Dr. Vazquez Review of Systems - Constitutional Constitutional: absent: Anorexia, Chills, Fever - EENT Eyes: absent: Blurred Vision Ears: absent: Decreased Hearing Nose/Mouth/Throat: absent: Sore Throat - Cardiovascular Cardiovascular: absent: Chest Pain - Respiratory Respiratory: absent: Cough, Dyspnea, Hemoptysis, Wheezing - Gastrointestinal Gastrointestinal: absent: Abdominal Pain, Constipation, Diarrhea, Nausea, Vomiting - Genitourinary Genitourinary: absent: Dysuria, Hematuria - Musculoskeletal Musculoskeletal: absent: Abnormal Gait, Myalgias - Integumentary Integumentary: Erythema, Swelling, Other (posterior medial left calf nodule about 5 cm x 10 cm) - Neurological Neurological: absent: Numbness, Tingling Past Patient History - Infectious Disease Hx of Infectious Diseases: None - Tetanus Immunizations Tetanus Immunization: Unknown - Past Social History Smoking Status: Never Smoked - CARDIAC Hx Hypertension: Yes - PULMONARY Hx Respiratory Disorders: Yes Hx Chronic Obstructive Pulmonary Disease (COPD): Yes - NEUROLOGICAL Hx Neurological Disorder: No - HEENT Hx HEENT Problems: No - RENAL Hx Renal (Kidney) Cancer: Yes (R nephrectomy) - ENDOCRINE/METABOLIC Hx Endocrine Disorders: No - HEMATOLOGICAL/ONCOLOGICAL Hx Blood Transfusions: No Hx Blood Transfusion Reaction: No - INTEGUMENTARY Hx Dermatological Problems: No - MUSCULOSKELETAL/RHEUMATOLOGICAL Hx Musculoskeletal Disorders: No Hx Falls: No - GASTROINTESTINAL Hx Gastrointestinal Disorders: No - GENITOURINARY/GYNECOLOGICAL Hx Genitourinary Disorders: No - PSYCHIATRIC Hx Depression: No Hx Emotional Abuse: No Hx Physical Abuse: No Hx Substance Use: No - SURGICAL HISTORY Hx Surgeries: Yes Other/Comment: Nephrectomy. hernia repair - ANESTHESIA Hx Anesthesia: Yes Hx Anesthesia Reactions: No Hx Malignant Hyperthermia: No Meds Allergies/Adverse Reactions: Allergies Allergy/AdvReac Type Severity Reaction Status Date / Time FISH Allergy Mild CONGESTION Verified 12/15/17 19:30 Penicillins Allergy RASH Verified 12/15/17 20:40 Sulfa (Sulfonamide Allergy RASH Verified 12/15/17 20:40 Antibiotics) EGGS Allergy Mild CONGESTION Uncoded 12/15/17 19:30 - Medications Medications: Current Medications Acetaminophen (Tylenol 325mg Tab) 650 mg PO Q6H PRN PRN Reason: Pain, moderate (4-7) Atorvastatin Calcium (Lipitor) 10 mg PO HS [facility] Last Admin: 12/17/17 21:45 Dose: 10 mg Doxazosin Mesylate (Cardura) 8 mg PO HS [facility] Last Admin: 12/17/17 21:45 Dose: 8 mg Finasteride (Proscar) 5 mg PO DAILY [facility] Last Admin: 12/18/17 09:16 Dose: 5 mg Heparin Sodium (Porcine) (Heparin) 5,000 units SC Q8H [facility]; Protocol Last Admin: 12/18/17 09:16 Dose: 5,000 units Clindamycin Phosphate (Cleocin) 600 mg in 50 mls @ 50 mls/hr IVPB Q8H [facility]; Protocol Last Admin: 12/18/17 09:16 Dose: 50 mls/hr Losartan Potassium (Cozaar) 100 mg PO DAILY [facility] Last Admin: 12/18/17 09:16 Dose: 100 mg Oxycodone/Acetaminophen (Percocet 5/325 Mg Tab) 1 tab PO Q6H PRN PRN Reason: Pain, severe (8-10) Stop: 12/19/17 13:48 Pantoprazole Sodium (Protonix Ec Tab) 40 mg PO 0600 [facility] Last Admin: 12/18/17 05:24 Dose: 40 mg Tiotropium [place] (Spiriva) 18 mcg IH DAILY [facility] Last Admin: 12/18/17 09:17 Dose: 18 mcg Physical Exam - Head Exam Head Exam: ATRAUMATIC, NORMAL INSPECTION, NORMOCEPHALIC - Eye Exam Eye Exam: EOMI Pupil Exam: PERRL - ENT Exam ENT Exam: Mucous Membranes Moist - Respiratory Exam Respiratory Exam: Clear to Auscultation Bilateral, NORMAL BREATHING PATTERN - Cardiovascular Exam Cardiovascular Exam: REGULAR RHYTHM, RRR - GI/Abdominal Exam GI & Abdominal Exam: Normal Bowel Sounds, Soft - Extremities Exam Extremities exam: Positive for: full ROM, normal inspection - Neurological Exam Neurological exam: Alert, CN II-XII Intact, Oriented x3 - Skin Skin Exam: Erythema, Warm Additional comments: PT/DP pulses palpable. erythema of left foot, but erythema not visible above a nkle. edema present below the left knee. palpable nodule that is [id number] Results - Vital Signs Recent Vital Signs: Last Vital Signs Temp 97.6 F 12/18/17 07:43 Pulse 89 12/18/17 07:43 Resp 19 12/18/17 07:43 BP 137/80 12/18/17 07:43 Pulse Ox 96 12/18/17 07:43 - Labs Result Diagrams: 12/18/17 05:45 12/18/17 05:45 Labs: Laboratory Results - last 24 hr 12/17/17 12/18/17 12/18/17 08:31 05:45 05:45 WBC 5.4 RBC 3.41 L Hgb 10.6 L Hct 32.0 L MCV 93.8 MCH 31.1 MCHC 33.1 RDW 13.8 Plt Count 212 MPV 10.1 Gran % 39.2 L Lymph % (Auto) 38.5 H [place] % (Auto) 10.3 H Eos % (Auto) 11.4 H Baso % (Auto) 0.6 Gran # 2.10 Lymph # (Auto) 2.1 [place] # (Auto) 0.6 Eos # (Auto) 0.6 Baso # (Auto) 0.03 Sodium 136 Potassium 4.5 Chloride 110 H Carbon Dioxide 21 Anion Gap 9 L BUN 27 H Creatinine 1.5 Est GFR ( Amer) 54 Est GFR (Non-Af Amer) 44 Random Glucose 76 Calcium 8.6 Total Bilirubin 0.7 AST 28 ALT 25 Alkaline Phosphatase 65 C-Reactive Protein 8.70 Total Protein 6.7 Albumin 3.3 Globulin 3.5 Albumin/Globulin Ratio 0.9 L Assessment & Plan - Assessment and Plan (Free Text) Assessment: 87 year old male with past medical history of right renal cell carcinoma s/p R nephrectomy, HTN, HLD, COPD, BPH, DILLON presented with redness, warmth, swelling and pain for 3 days prior to presentation to emergency department 6 days after being on 12 hour flight to [place]. Patient consulted for surgery for evaluation and management of possible hematoma vs. DVT. Doubt abscess Plan: CT venogram to rule out central vein thrombosis. Continue DVT prophylaxis. Will discuss case with Dr. Briggs - Date & Time Date: 12/18/17 Time: 14:06
[2017-12-19] MEDS: Clindamycin 600mg/50ml D5W 600 MG/50 ML VIAL IVPB SCH ×3 (00:01→17:59)
[2017-12-19] MEDS: Pantoprazole 40 mg EC Tab PO SCH (06:35)
--- NOTE | 2017-12-19 07:33 | PN ---
DATE: 12/18/2017 ORTHOPEDIC FOLLOWUP REPORT SUBJECTIVE: Dictating report after patient got MRI of his left leg that has a localized hematoma, soft tissue well circumscribed underneath the fascia of the medial side of that left leg that is by history getting a little better and has not caused any symptoms of compartment syndrome. He does feel better at night with no pain, discomfort when he walks. To me, it looks like slowly resolving hematoma of his left leg that probably came by the long flight from [place] when he came into the hospital on 12/15/2017. He just had come from [place] with that indurated palpable soft tissue mass of his inner calf proximally. I would treat it conservatively, let it spontaneously resolve, it might take a month or six weeks, but as long as it is getting better, we do not have to violate the skin and possible getting it infected and we could follow him up. If it does get worse or painful, then we could always go in and take it off, but right now I have asked general surgeon to see me. He might have better reason for operating, then I would put him in a compression stocking and medicine, ordered another venous Doppler, so he could probably go home with antibiotics and follow it every week in the office to see how it is doing and in subsequent visits, but it looks like it is about 3 inches x 1 inch and we could repeat the x-ray in about a month or six weeks and he would be helped by wearing a heel lift about half an inch because he does have some pain when he ambulates, but he feels less pain if he had heel elevated and he has no pain when he is sleeping or lying. FINAL DIAGNOSIS: It looks like hematoma, medial part of left calf proximally that to me does not look infectious, but it is related to long airplane flight from [place] a week ago. Pravin Palomino DO
[2017-12-19] MEDS: Tiotropium 18 mcg Cap For Inhalation IH SCH (09:30)
--- NOTE | 2017-12-19 13:40 | CP.PCM.PN ---
<Beka Paulino - Last Filed: 12/19/17 17:40> Subjective - Date & Time of Evaluation Date of Evaluation: 12/19/17 Time of Evaluation: 08:15 - Subjective Subjective: PGY-1 Medicine Progress Note for Dr. Davis Patient seen and examined at bedside, resting comfortably and in no acute distress. No acute overnight events reported. Continues to endorse LLE calf tenderness, pain with ambulation. Swelling and soft mass on medial aspect of posterior calf still noted. No fevers/chills, headaches, dizziness, changes in vision, chest pain, palpitations, sob, cough, abdominal pain, n/v/d/c, dysuria, or changes in stool. CT venogram was recommended by Surgery to r/o central venous thrombosis but pt refuses at this time. He is amenable to discharge to subacute rehab. Patient' son made aware of hospital course and agrees with plan. Objective - Vital Signs/Intake and Output Vital Signs (last 24 hours): Temp Pulse Resp BP Pulse Ox 97.7 F 82 20 136/76 98 12/19/17 07:58 12/19/17 07:58 12/19/17 07:58 12/19/17 07:58 12/19/17 07:58 Intake and Output: 12/19/17 12/19/17 06:59 18:59 Intake Total 120 Output Total 550 Balance -430 - Medications Medications: Current Medications Acetaminophen (Tylenol 325mg Tab) 650 mg PO Q6H PRN PRN Reason: Pain, moderate (4-7) Atorvastatin Calcium (Lipitor) 10 mg PO HS [facility] Last Admin: 12/18/17 21:57 Dose: 10 mg Doxazosin Mesylate (Cardura) 8 mg PO HS [facility] Last Admin: 12/18/17 21:56 Dose: 8 mg Finasteride (Proscar) 5 mg PO DAILY [facility] Last Admin: 12/19/17 09:30 Dose: 5 mg Heparin Sodium (Porcine) (Heparin) 5,000 units SC Q8H [facility]; Protocol Last Admin: 12/19/17 09:30 Dose: 5,000 units Clindamycin Phosphate (Cleocin) 600 mg in 50 mls @ 50 mls/hr IVPB Q8H [facility]; Protocol Last Admin: 12/19/17 08:41 Dose: 50 mls/hr Losartan Potassium (Cozaar) 100 mg PO DAILY [facility] Last Admin: 12/19/17 09:30 Dose: 100 mg Oxycodone/Acetaminophen (Percocet 5/325 Mg Tab) 1 tab PO Q6H PRN PRN Reason: Pain, severe (8-10) Stop: 12/19/17 13:48 Pantoprazole Sodium (Protonix Ec Tab) 40 mg PO 0600 [facility] Last Admin: 12/19/17 06:35 Dose: 40 mg Tiotropium [place] (Spiriva) 18 mcg IH DAILY [facility] Last Admin: 12/19/17 09:30 Dose: 18 mcg - Labs Labs: 12/18/17 05:45 12/18/17 05:45 PT 12.0 SECONDS (9.4-12.5) 12/15/17 21:05 INR 1.05 12/15/17 21:05 APTT 29.4 Seconds (25.1-36.5) 12/15/17 21:05 - Constitutional Appears: Non-toxic, No Acute Distress - Head Exam Head Exam: ATRAUMATIC, NORMAL INSPECTION, NORMOCEPHALIC - Eye Exam Eye Exam: EOMI, Normal appearance Pupil Exam: NORMAL ACCOMODATION, PERRL - ENT Exam ENT Exam: Mucous Membranes Moist - Neck Exam Neck Exam: Full ROM, Normal Inspection - Respiratory Exam Respiratory Exam: Clear to Ausculation Bilateral, NORMAL BREATHING PATTERN. absent: Rales, Rhonchi, Wheezes, Respiratory Distress, Stridor - Cardiovascular Exam Cardiovascular Exam: REGULAR RHYTHM, +S1, +S2 - GI/Abdominal Exam GI & Abdominal Exam: Soft, Normal Bowel Sounds. absent: Distended, Firm, Guarding, Rigid, Tenderness, Organomegaly - Extremities Exam Extremities Exam: Calf Tenderness, Full ROM, Normal Capillary Refill Additional comments: Swelling of the LLE noted, all the way down to the ankle. Palpable nodule 5x10 cm medial aspect L posterior calf - Back Exam Back Exam: NORMAL INSPECTION - Neurological Exam Neurological Exam: Alert, Awake, Oriented x3 - Psychiatric Exam Psychiatric exam: Normal Affect, Normal Mood - Skin Skin Exam: Dry, Intact, Normal Color, Warm. absent: Erythema Assessment and Plan - Assessment and Plan (Free Text) Assessment: 87 yo [place] M with PMHx of R renal cell carcinoma s/p R nephrectomy, HTN, HLD, COPD, BPH, DILLON presenting with diffuse LLE cellulitis, r/o possible hematoma vs DVT. Plan: Diffuse LLE cellulitis, r/o possible hematoma vs DVT --pt is afebrile, no leukocytosis noted --L calf tenderness noted --palpable nodule posterior calf --Imaging -CT Lower extremity (12/15): diffuse LLE cellulitis -LE U/S (12/15): no evidence for DVT, 1.7x 6.4 cm heterogeneous collection lateral to the knee, differential includes hematoma -LE U/S (12/17): no evidence for DVT, 5 cm heterogeneous collection in media calf, differential includes hematoma --Ortho recs (Dr. Palomino) appreciated -MRI LE (12/18): 5.8x3.0x12.2 cm ovoid collection within posterior medial calf, appears to be about and/or originate at the fascial interface of the medial head of the gastrocnemius muscle. Apparent compressive mass effect on the medial head of the gastrocnemius muscle. Uncertain etiology, may represent a large hematoma. Additional consideration includes abscess collection vs underlying lesion. --Surgery recs (Dr. Briggs) appreciated -f/u CT venogram to r/o central venous thrombosis -c/w DVT PPx --Medications -Clindamycin 600 mg q8 -Tylenol 600 mg q6 PRN DWAYNE --Improved, creatinine 1.5 from 1.7 HTN --Continue home Losartan and HCTZ HLD --Continue home Lipitor 10 mg COPD/DILLON --Continue O2, Spiriva PRN BPH --Continue home finasteride 5 mg PPx, Diet, Disposition -DVT PPx: Heparin -GI PPx: Protonix -Diet: HHD -Disposition: Pt amenable to discharge to [facility]. Per Case Management, pt must be inpatient status for 3 days before qualifying. Patient's son made aware of plans and agrees. Case discussed with Dr. Sancho Paulino DO, PGY-1 <Chris Davis - Last Filed: 12/19/17 18:27> Objective - Vital Signs/Intake and Output Vital Signs (last 24 hours): Temp Pulse Resp BP Pulse Ox 97.6 F 86 20 105/58 L 98 12/19/17 17:43 12/19/17 17:43 12/19/17 17:43 12/19/17 17:43 12/19/17 17:43 Intake and Output: 12/19/17 12/19/17 06:59 18:59 Intake Total 120 Output Total 550 Balance -430 - Medications Medications: Current Medications Acetaminophen (Tylenol 325mg Tab) 650 mg PO Q6H PRN PRN Reason: Pain, moderate (4-7) Atorvastatin Calcium (Lipitor) 10 mg PO HS [facility] Last Admin: 12/18/17 21:57 Dose: 10 mg Doxazosin Mesylate (Cardura) 8 mg PO HS [facility] Last Admin: 12/18/17 21:56 Dose: 8 mg Finasteride (Proscar) 5 mg PO DAILY [facility] Last Admin: 12/19/17 09:30 Dose: 5 mg Heparin Sodium (Porcine) (Heparin) 5,000 units SC Q8H [facility]; Protocol Last Admin: 12/19/17 18:00 Dose: 5,000 units Clindamycin Phosphate (Cleocin) 600 mg in 50 mls @ 50 mls/hr IVPB Q8H [facility]; Protocol Last Admin: 12/19/17 17:59 Dose: 50 mls/hr Losartan Potassium (Cozaar) 100 mg PO DAILY [facility] Last Admin: 12/19/17 09:30 Dose: 100 mg Pantoprazole Sodium (Protonix Ec Tab) 40 mg PO 0600 [facility] Last Admin: 12/19/17 06:35 Dose: 40 mg Tiotropium [place] (Spiriva) 18 mcg IH DAILY [facility] Last Admin: 12/19/17 09:30 Dose: 18 mcg - Labs Labs: 12/18/17 05:45 12/18/17 05:45 PT 12.0 SECONDS (9.4-12.5) 12/15/17 21:05 INR 1.05 12/15/17 21:05 APTT 29.4 Seconds (25.1-36.5) 12/15/17 21:05 Attending/Attestation - Attestation I have personally seen and examined this patient.: Yes I have fully participated in the care of the patient.: Yes I have reviewed all pertinent clinical information, including history, physical exam and plan: Yes Notes (Text): 12/19/17 18:22 87 year old male with past medical history of renal cell cancer s/p right nephrectomy, hypertension, and dylipidemia who presented with left leg pain and swelling. He was found to have left leg cellulitis and possible hematoma. CT, MRI and LE dopplers reviewed as above; negative for DVT. Orthopedic and surgery evaluation were appreciated; recommended CT venogram which patient is refusing. Patient is on antibiotics. PT is following and recommended [facility] vs [facility]; however patient will need 3 inpatient midnight stays. Patient is on losartan for hypertension; HCTZ was held due to DWAYNE which has resolved. Chris Davis MD Hospitalist.
[2017-12-20] MEDS: Clindamycin 600mg/50ml D5W 600 MG/50 ML VIAL IVPB SCH ×3 (01:43→16:13)
[2017-12-20] MEDS: Pantoprazole 40 mg EC Tab PO SCH (05:22)
[2017-12-20] MEDS: Tiotropium 18 mcg Cap For Inhalation IH SCH (10:06)
--- NOTE | 2017-12-20 14:21 | CP.PCM.PN ---
<Beka Paulino - Last Filed: 12/20/17 15:55> Subjective - Date & Time of Evaluation Date of Evaluation: 12/20/17 Time of Evaluation: 08:30 - Subjective Subjective: PGY-1 Medicine Progress Note for Dr. Davis Patient seen and examined at bedside, lying comfortably and in no acute distress. No acute overnight events reported. Continues to endorse pain and swelling in LLE. No other acute complaints at this time. No fevers/chills, headaches, dizziness, changes in vision, chest pain, palpitations, sob, cough, abdominal pain, n/v/d/c, dysuria, or changes in stool. Objective - Vital Signs/Intake and Output Vital Signs (last 24 hours): Temp Pulse Resp BP Pulse Ox 98.4 F 81 19 115/57 L 97 12/20/17 06:00 12/20/17 06:00 12/20/17 06:00 12/20/17 06:00 12/20/17 06:00 Intake and Output: 12/20/17 12/20/17 06:59 18:59 Intake Total 100 Output Total 400 Balance -300 - Medications Medications: Current Medications Acetaminophen (Tylenol 325mg Tab) 650 mg PO Q6H PRN PRN Reason: Pain, moderate (4-7) Atorvastatin Calcium (Lipitor) 10 mg PO HS [facility] Last Admin: 12/19/17 21:29 Dose: 10 mg Doxazosin Mesylate (Cardura) 8 mg PO HS [facility] Last Admin: 12/19/17 21:29 Dose: 8 mg Finasteride (Proscar) 5 mg PO DAILY [facility] Last Admin: 12/20/17 10:06 Dose: 5 mg Heparin Sodium (Porcine) (Heparin) 5,000 units SC Q8H [facility]; Protocol Last Admin: 12/20/17 10:11 Dose: 5,000 units Clindamycin Phosphate (Cleocin) 600 mg in 50 mls @ 50 mls/hr IVPB Q8H [facility]; Pro tocol Last Admin: 12/20/17 08:17 Dose: 50 mls/hr Losartan Potassium (Cozaar) 100 mg PO DAILY [facility] Last Admin: 12/20/17 10:06 Dose: 100 mg Pantoprazole Sodium (Protonix Ec Tab) 40 mg PO 0600 [facility] Last Admin: 12/20/17 05:22 Dose: 40 mg Tiotropium [place] (Spiriva) 18 mcg IH DAILY [facility] Last Admin: 12/20/17 10:06 Dose: 18 mcg - Labs Labs: 12/18/17 05:45 12/18/17 05:45 PT 12.0 SECONDS (9.4-12.5) 12/15/17 21:05 INR 1.05 12/15/17 21:05 APTT 29.4 Seconds (25.1-36.5) 12/15/17 21:05 - Constitutional Appears: Non-toxic, No Acute Distress - Head Exam Head Exam: ATRAUMATIC, NORMAL INSPECTION, NORMOCEPHALIC - Eye Exam Eye Exam: EOMI, Normal appearance, PERRL Pupil Exam: NORMAL ACCOMODATION - ENT Exam ENT Exam: Mucous Membranes Moist, Normal Exam - Neck Exam Neck Exam: Full ROM, Normal Inspection - Respiratory Exam Respiratory Exam: Clear to Ausculation Bilateral, NORMAL BREATHING PATTERN. a bsent: Rales, Rhonchi, Wheezes, Respiratory Distress, Stridor - Cardiovascular Exam Cardiovascular Exam: REGULAR RHYTHM, +S1, +S2 - GI/Abdominal Exam GI & Abdominal Exam: Soft, Normal Bowel Sounds. absent: Distended, Firm, Guarding, Rigid, Tenderness, Organomegaly - Extremities Exam Extremities Exam: Calf Tenderness, Full ROM, Normal Capillary Refill Additional comments: Swelling of the LLE noted, all the way down to the ankle. Palpable nodule 5x10 cm medial aspect L posterior calf - Back Exam Back Exam: NORMAL INSPECTION - Neurological Exam Neurological Exam: Alert, Awake, Oriented x3 - Psychiatric Exam Psychiatric exam: Normal Affect, Normal Mood - Skin Skin Exam: Dry, Intact, Normal Color, Warm. absent: Erythema Assessment and Plan - Assessment and Plan (Free Text) Assessment: 87 yo [place]ian M with PMHx of R renal cell carcinoma s/p R nephrectomy, HTN, HLD, COPD, BPH, DILLON presenting with diffuse LLE cellulitis, r/o possible hematoma vs DVT. Plan: Diffuse LLE cellulitis, r/o possible hematoma vs DVT --pt is afebrile, no leukocytosis noted --slight ecchymosis appearing on distal medial calf --L calf tenderness noted --palpable nodule posterior calf --Imaging -CT Lower extremity (12/15): diffuse LLE cellulitis -LE U/S (12/15): no evidence for DVT, 1.7x 6.4 cm heterogeneous collection lateral to the knee, differential includes hematoma -LE U/S (12/17): no evidence for DVT, 5 cm heterogeneous collection in media calf, differential includes hematoma --Ortho recs (Dr. Palomino) appreciated -MRI LE (12/18): 5.8x3.0x12.2 cm ovoid collection within posterior medial calf, appears to be about and/or originate at the fascial interface of the medial head of the gastrocnemius muscle. Apparent compressive mass effect on the medial head of the gastrocnemius muscle. Uncertain etiology, may represent a large hematoma. Additional consideration includes abscess collection vs underlying lesion. --Surgery recs (Dr. Briggs) appreciated -Pt refuses CT venogram -c/w DVT PPx --Medications -Clindamycin 600 mg q8 x 5 days (on Day 4 of 5) -Tylenol 600 mg q6 PRN DWAYNE --Pt refused morning labs. Last Cr value at 1.5 HTN --Continue home Losartan HLD --Continue home Lipitor 10 mg COPD/DILLON --Continue supplemental O2, Spiriva PRN BPH --Continue home finasteride 5 mg --Continue Doxazosin 8 mg PO HS PPx, Diet, Disposition -DVT PPx: Heparin 5000U sc q8 -GI PPx: Protonix 40, 0600 SC -Diet: HHD -Disposition: Pt amenable to discharge to TCU. Per Case Management, pt must be inpatient status for 3 days before qualifying. He will stay one more day overnight before transfer to TCU, pending TCU acceptance on . Insurance will approve 8 days of TCU. Patient's son made aware of plans and agrees. Case discussed with Dr. Ryan Paulino DO, PGY-1 <Chris Davis - Last Filed: 12/21/17 06:45> Objective - Vital Signs/Intake and Output Vital Signs (last 24 hours): Temp Pulse Resp BP Pulse Ox 98.7 F 82 18 118/70 98 12/20/17 16:57 12/20/17 16:57 12/20/17 16:57 12/20/17 18:48 12/20/17 16:57 Intake and Output: 12/20/17 12/21/17 18:59 06:59 Intake Total 1160 Balance 1160 - Medications Medications: Current Medications Acetaminophen (Tylenol 325mg Tab) 650 mg PO Q6H PRN PRN Reason: Pain, moderate (4-7) Atorvastatin Calcium (Lipitor) 10 mg PO HS [facility] Last Admin: 12/20/17 21:29 Dose: 10 mg Doxazosin Mesylate (Cardura) 8 mg PO HS [facility] Last Admin: 12/20/17 22:00 Dose: 8 mg Finasteride (Proscar) 5 mg PO DAILY [facility] Last Admin: 12/20/17 10:06 Dose: 5 mg Heparin Sodium (Porcine) (Heparin) 5,000 units SC Q8H [facility]; Protocol Last Admin: 12/21/17 01:24 Dose: 5,000 units Clindamycin Phosphate (Cleocin) 600 mg in 50 mls @ 50 mls/hr IVPB Q8H [facility]; Protocol Last Admin: 12/21/17 00:07 Dose: 50 mls/hr Losartan Potassium (Cozaar) 100 mg PO DAILY [facility] Last Admin: 12/20/17 10:06 Dose: 100 mg Pantoprazole Sodium (Protonix Ec Tab) 40 mg PO 0600 [facility] Last Admin: 12/21/17 05:56 Dose: 40 mg Tiotropium [place] (Spiriva) 18 mcg IH DAILY [facility] Last Admin: 12/20/17 10:06 Dose: 18 mcg - Labs Labs: 12/18/17 05:45 12/18/17 05:45 PT 12.0 SECONDS (9.4-12.5) 12/15/17 21:05 INR 1.05 12/15/17 21:05 APTT 29.4 Seconds (25.1-36.5) 12/15/17 21:05 Attending/Attestation - Attestation I have personally seen and examined this patient.: Yes I have fully participated in the care of the patient.: Yes I have reviewed all pertinent clinical information, including history, physical exam and plan: Yes Notes (Text): 12/20/17 87 year old male with past medical history of renal cell cancer s/p right nephrectomy, hypertension, and dylipidemia who presented with left leg pain and swelling. He was found to have left leg cellulitis and possible hematoma. CT, MRI and LE dopplers reviewed as above; negative for DVT. Orthopedic and surgery evaluation were appreciated; recommended CT venogram which patient is refusing. Patient is on antibiotics. Cellulitis has improved. PT is following and recommended [facility] vs [facility]CU; however patient will need 3 inpatient midnight stays. Possible plan to transfer to TCU tomorrow if patient is accepted. Patient is on losartan for hypertension; HCTZ was held due to DWAYNE which has resolved. Chris Davis MD Hospitalist.
[2017-12-21] MEDS: Clindamycin 600mg/50ml D5W 600 MG/50 ML VIAL IVPB SCH ×2 (00:07→08:46)
[2017-12-21] MEDS: Pantoprazole 40 mg EC Tab PO SCH (05:56)
[2017-12-21] MEDS: Tiotropium 18 mcg Cap For Inhalation IH SCH (10:19)
--- NOTE | 2017-12-21 13:42 | CP.PCM.PN ---
<Beka Paulino - Last Filed: 12/21/17 21:07> Subjective - Date & Time of Evaluation Date of Evaluation: 12/21/17 Time of Evaluation: 08:00 - Subjective Subjective: PGY-1 Medicine Progress Note for Dr. Davis Patient seen and examined at bedside. No acute overnight events. Pt endorses increased swelling in LLE, difficulty bearing weight on LLE, minimal ambulation 2/2 pain this am. Patient was encouraged to keep legs elevated while laying in bed. No fevers/chills, headaches, dizziness, changes in vision, chest pain, palpitations, sob, cough, abdominal pain, n/v/d/c, dysuria, or changes in stool. Objective - Vital Signs/Intake and Output Vital Signs (last 24 hours): Temp Pulse Resp BP Pulse Ox 98.0 F 90 20 133/68 97 12/21/17 06:00 12/21/17 06:00 12/21/17 06:00 12/21/17 06:00 12/21/17 06:00 Intake and Output: 12/21/17 12/21/17 06:59 18:59 Intake Total 340 Balance 340 - Medications Medications: Current Medications Acetaminophen (Tylenol 325mg Tab) 650 mg PO Q6H PRN PRN Reason: Pain, moderate (4-7) Atorvastatin Calcium (Lipitor) 10 mg PO HS [facility] Last Admin: 12/20/17 21:29 Dose: 10 mg Doxazosin Mesylate (Cardura) 8 mg PO HS [facility] Last Admin: 12/20/17 22:00 Dose: 8 mg Finasteride (Proscar) 5 mg PO DAILY [facility] Last Admin: 12/21/17 10:19 Dose: 5 mg Clindamycin Phosphate (Cleocin) 600 mg in 50 mls @ 50 mls/hr IVPB Q8H [facility]; Protocol Last Admin: 12/21/17 08:46 Dose: 50 mls/hr Losartan Potassium (Cozaar) 100 mg PO DAILY [facility] Last Admin: 12/21/17 10:19 Dose: 100 mg Pantoprazole Sodium (Protonix Ec Tab) 40 mg PO 0600 [facility] Last Admin: 12/21/17 05:56 Dose: 40 mg Tiotropium [place] (Spiriva) 18 mcg IH DAILY [facility] Last Admin: 12/21/17 10:19 Dose: 18 mcg - Labs Labs: 12/18/17 05:45 12/18/17 05:45 PT 12.0 SECONDS (9.4-12.5) 12/15/17 21:05 INR 1.05 12/15/17 21:05 APTT 29.4 Seconds (25.1-36.5) 12/15/17 21:05 - Constitutional Appears: Non-toxic - Head Exam Head Exam: ATRAUMATIC, NORMAL INSPECTION, NORMOCEPHALIC - Eye Exam Eye Exam: EOMI, Normal appearance Pupil Exam: NORMAL ACCOMODATION - ENT Exam ENT Exam: Mucous Membranes Moist, Normal Exam - Neck Exam Neck Exam: Full ROM, Normal Inspection - Respiratory Exam Respiratory Exam: Clear to Ausculation Bilateral, NORMAL BREATHING PATTERN. absent: Rales, Rhonchi, Wheezes, Respiratory Distress, Stridor - Cardiovascular Exam Cardiovascular Exam: REGULAR RHYTHM, +S1, +S2 - GI/Abdominal Exam GI & Abdominal Exam: Soft, Normal Bowel Sounds. absent: Distended, Firm, Guarding, Rigid, Tenderness - Extremities Exam Extremities Exam: Calf Tenderness (Left), Full ROM, Normal Capillary Refill Additional comments: Increased swelling of the L gastrocnemius, ecchmyosis noted along L calf - Back Exam Back Exam: NORMAL INSPECTION - Neurological Exam Neurological Exam: Alert, Awake, Oriented x3 - Psychiatric Exam Psychiatric exam: Normal Affect, Normal Mood - Skin Skin Exam: Dry, Intact, Warm Additional comments: Ecchmyosis surrounding L calf Assessment and Plan - Assessment and Plan (Free Text) Assessment: 87 yo [place] M with PMHx of R renal cell carcinoma s/p R nephrectomy, HTN, HLD, COPD, BPH, DILLON presenting with diffuse LLE cellulitis, increased hematoma noted on LLE with no inciting trauma endorsed by patient. Plan: Diffuse LLE cellulitis, r/o possible hematoma vs DVT --pt is afebrile, no leukocytosis noted --ecchymosis noted on distal medial calf --L calf tenderness noted --increased swelling of L posterior calf --Imaging -CT Lower extremity (12/15): diffuse LLE cellulitis -LE U/S (12/15): no evidence of DVT, 1.7x 6.4 cm heterogeneous collection lateral to the knee, differential includes hematoma -LE U/S (12/17): no evidence of DVT, 5 cm heterogeneous collection in media calf, differential includes hematoma -LE U/S (12/21): no evidence of DVT, large hematoma 17.33 x 8.6 x 6.1 cm --Ortho recs (Dr. Palomino) appreciated -MRI LE (12/18): 5.8x3.0x12.2 cm ovoid collection within posterior medial calf, appears to be about and/or originate at the fascial interface of the medial head of the gastrocnemius muscle. Apparent compressive mass effect on the medial head of the gastrocnemius muscle. Uncertain etiology, may represent a large hematoma. Additional consideration includes abscess collection vs underlying lesion. --Surgery recs (Dr. Briggs) appreciated -Pt refuses CT venogram -reassessed pt (02/17), recommend d/c DVT ppx, heme/onc consult to r/o coagulopathy given large hematoma with no hx of trauma or inciting event -repeat CT w/o contrast LLE -consider drainage based on findings --Heme/Onc (Dr. Guajardo) on board --Medications -Clindamycin 600 mg q8 x 5 days completed (Day 5) -Tylenol 600 mg q6 PRN DWAYNE --Pt refusing morning labs. Last Cr value at 1.5 HTN --Continue home Losartan HLD --Continue home Lipitor 10 mg COPD/DILLON --Continue supplemental O2, Spiriva PRN BPH --Continue home finasteride 5 mg --Continue Doxazosin 8 mg PO HS PPx, Diet, Disposition -GI PPx: Protonix 40, 0600 SC -Diet: HHD -Disposition: F/U Heme/Onc recs, repeat CT LE. R/o coagulopathy. Possible surgi leta drainage, pending findings. Case discussed with Dr. Ryan Paulino DO, PGY-1 <Chris Davis - Last Filed: 12/22/17 07:00> Objective - Vital Signs/Intake and Output Vital Signs (last 24 hours): Temp Pulse Resp BP Pulse Ox 98.3 F 70 18 130/62 98 12/21/17 17:06 12/21/17 17:06 12/21/17 17:06 12/21/17 17:06 12/21/17 17:06 Intake and Output: 12/21/17 12/22/17 18:59 06:59 Intake Total 640 240 Output Total 450 Balance 190 240 - Medications Medications: Current Medications Acetaminophen (Tylenol 325mg Tab) 650 mg PO Q6H PRN PRN Reason: Pain, moderate (4-7) Atorvastatin Calcium (Lipitor) 10 mg PO HS [facility] Last Admin: 12/21/17 21:07 Dose: 10 mg Doxazosin Mesylate (Cardura) 8 mg PO HS [facility] Last Admin: 12/21/17 21:07 Dose: 8 mg Finasteride (Proscar) 5 mg PO DAILY [facility] Last Admin: 12/21/17 10:19 Dose: 5 mg Losartan Potassium (Cozaar) 100 mg PO DAILY [facility] Last Admin: 12/21/17 10:19 Dose: 100 mg Pantoprazole Sodium (Protonix Ec Tab) 40 mg PO 0600 [facility] Last Admin: 12/22/17 05:35 Dose: 40 mg Tiotropium [place] (Spiriva) 18 mcg IH DAILY [facility] Last Admin: 12/21/17 10:19 Dose: 18 mcg - Labs Labs: 12/18/17 05:45 12/18/17 05:45 PT 13.4 SECONDS (9.4-12.5) H 12/22/17 06:20 INR 1.16 12/22/17 06:20 APTT 28.9 Seconds (25.1-36.5) 12/22/17 06:20 Attending/Attestation - Attestation I have personally seen and examined this patient.: Yes I have fully participated in the care of the patient.: Yes I have reviewed all pertinent clinical information, including history, physical exam and plan: Yes Notes (Text): 12/21/17 87 year old male with past medical history of renal cell cancer s/p right nephrectomy, hypertension, and dylipidemia who presented with left leg pain and swelling. He was found to have left leg cellulitis and possible hematoma. CT, MRI and LE dopplers reviewed as above; negative for DVT. Orthopedic and surgery evaluation were appreciated; recommended CT venogram which patient is refusing. Patient was on antibiotics. Cellulitis has improved. PT is following and recommended [facility] vs [facility]. Patient is on losartan for hypertension; HCTZ was held due to DWAYNE which has reso lved. Patient has been refusing labs for the past few days. This morning patient complains of increased pain and swelling of left calf. Repeat doppler is ordered which is negative for DVT; shows hematoma. Hematology consult was requested; consider surgery or IR drainage. Chris Davis MD Hospitalist.
--- NOTE | 2017-12-21 15:08 | CP.PCM.PN ---
Subjective - Date & Time of Evaluation Date of Evaluation: 12/21/17 Time of Evaluation: 15:01 - Subjective Subjective: Krysta Barlow, PGY-1, Surgery Progress Note for Dr. Briggs Patient seen and examined at bedside. Patient reports enlargement of mass on left upper and medial calf leading to patient having 10/10 calf pain. Pain does not allow patient to walk. Patient was able to tolerate pain until yesterday when he was unable to walk due to severe pain. Patient denies paresthesia, poikilothermic extremity, paralysis of extremity, and pallor. Patient reports new ecchymoses on left lower extremity close to ankle. Objective - Vital Signs/Intake and Output Vital Signs (last 24 hours): Temp Pulse Resp BP Pulse Ox 98.0 F 90 20 133/68 97 12/21/17 06:00 12/21/17 06:00 12/21/17 06:00 12/21/17 06:00 12/21/17 06:00 Intake and Output: 12/21/17 12/21/17 06:59 18:59 Intake Total 340 Balance 340 - Medications Medications: Current Medications Acetaminophen (Tylenol 325mg Tab) 650 mg PO Q6H PRN PRN Reason: Pain, moderate (4-7) Atorvastatin Calcium (Lipitor) 10 mg PO HS [facility] Last Admin: 12/20/17 21:29 Dose: 10 mg Doxazosin Mesylate (Cardura) 8 mg PO HS [facility] Last Admin: 12/20/17 22:00 Dose: 8 mg Finasteride (Proscar) 5 mg PO DAILY [facility] Last Admin: 12/21/17 10:19 Dose: 5 mg Clindamycin Phosphate (Cleocin) 600 mg in 50 mls @ 50 mls/hr IVPB Q8H [facility]; Protocol Last Admin: 12/21/17 08:46 Dose: 50 mls/hr Losartan Potassium (Cozaar) 100 mg PO DAILY [facility] Last Admin: 12/21/17 10:19 Dose: 100 mg Pantoprazole Sodium (Protonix Ec Tab) 40 mg PO 0600 [facility] Last Admin: 12/21/17 05:56 Dose: 40 mg Tiotropium [place] (Spiriva) 18 mcg IH DAILY [facility] Last Admin: 12/21/17 10:19 Dose: 18 mcg - Labs Labs: 12/18/17 05:45 12/18/17 05:45 PT 12.0 SECONDS (9.4-12.5) 12/15/17 21:05 INR 1.05 12/15/17 21:05 APTT 29.4 Seconds (25.1-36.5) 12/15/17 21:05 - Constitutional Appears: Well, Non-toxic - Head Exam Head Exam: ATRAUMATIC, NORMAL INSPECTION, NORMOCEPHALIC - Eye Exam Eye Exam: EOMI Pupil Exam: PERRL - ENT Exam ENT Exam: Mucous Membranes Moist - Respiratory Exam Respiratory Exam: Clear to Ausculation Bilateral, NORMAL BREATHING PATTERN - Cardiovascular Exam Cardiovascular Exam: REGULAR RHYTHM - GI/Abdominal Exam GI & Abdominal Exam: Soft, Normal Bowel Sounds - Extremities Exam Extremities Exam: Full ROM Additional comments: mass at posterior medial left lower extremity below the knee, which has enlarged since last examination - Neurological Exam Neurological Exam: Alert, Awake, CN II-XII Intact, Oriented x3 - Skin Skin Exam: Petechiae (left lower extremity close to ankle) Assessment and Plan - Assessment and Plan (Free Text) Assessment: 87 year old male with past medical history of right renal cell carcinoma s/p R nephrectomy, HTN, HLD, COPD, BPH, DILLON presented with redness, warmth, swelling and pain for 3 days prior to presentation to emergency department 6 days after being on 12 hour flight to [place]. Patient consulted for surgery for evaluation and management of possible enlarging hematoma causing extreme discomfort. Plan: -Patient denied CT venogram. -CT on left lower extremity to evaluate for location of possible bleed leading to hematoma. -Enlarged hematoma measuring 17x8x6 today vs. ultrasound on 12/17 measuring 8x1x5. -Possible surgery to evacuate hematoma due to new symptoms. -Stop anticoagulation. -Continue GI prophylaxis. -Replete electrolytes as needed. Will discuss case with Dr. Briggs
--- NOTE | 2017-12-21 16:11 | US ---
PROCEDURE: Left lower extremity venous US HISTORY: Leg pain and swelling. Evaluate for DVT. PHYSICIAN(S): Darnell Nielson MD. TECHNIQUE: Duplex sonography and color-flow Doppler with graded compression were used to evaluate the deep venous system of the left lower extremity. FINDINGS: The visualized deep venous system of the left lower extremity is sonographically normal and compressible. Normal wave forms and augmentation are seen. There is no sonographic evidence for deep venous thrombosis in the visualized segments of the left lower extremity. There is a large 3.2 x 8.8 cm heterogeneous hypoechoic collection in the left calf. The differential includes hematoma IMPRESSION: 1. No sonographic evidence for deep venous thrombosis in the visualized segments of the left lower extremity.
--- NOTE | 2017-12-21 17:31 | CP.PCM.CON ---
History of Present Illness - History of Present Illness History of Present Illness: Hematology/Oncology Consultation (Dr. Guajardo's Service) CC: LLE Hematoma HPI: Mr. Bliss is an 87 year old male with a past medical history significant for right renal cell carcinoma s/p total right nephrectomy, HTN, HLD, COPD, BPH and DILLON who originally presented with redness, warmth, swelling and pain for three days which began three days after being on a 12 hour flight from [place]. Patient visited satellite ER site in [place] and had lower extremity venous ultrasound that showed no evidence of DVT or clot. Patient was informed at that time, however, that he had an 11cm lesion behind his left knee with possible differential of hematoma, abscess, or cyst and discharged home with PMD follow up and no medications. His PMD then told him to come to the ER for a CT scan of his LLE which showed only left lower extremity cellulitis (12/15). An MRI of the LLE, recommended by orthopedic surgeon, showed 5.8x3.0x12.2cm collection within posterior medial calf with apparent compressive mass effect on the medial head of the gastrocnemius muscle of uncertain etiology but likely representing a large hematoma versus abscess collection (12/18). Overnight, patient was noted to have increased left calf swelling with associated tenderness and ecchymosis of the distal medial calf. A new LLE venous ultrasound was ordered and showed no evidence of DVT but noted large hematoma measuring now to be 8.6x6.1x17.33cm (12/21). Hematology/Oncology was consulted to rule out coagulopathy in this setting. Patient reports that he does not remember if he had trauma to the area and the only antiplatelet/anticoagulant that the patient takes is daily ASA 81mg. He denies any history of easy bruising/bleeding, hemarthrosis, bleeding gums, any family history of any coagulation disorders, or ever taken any anticoagulants. He currently denies any further symptoms including fevers, chills, headache, changes in his vision, dysphagia, chest pain, palpitations, SOB, cough, abdominal pain, N/V/D/C, or any changes in urine output. PMH: As stated above PSH: Total right nephrectomy Family History: Denies any hematologic or rheumatologic conditions Social History: Denies any history of tobacco, alcohol or illicit drug abuse Allergies: Fish, PCN, and sulfa drugs Home Medications: Benicar, Lipitor, Finasteride, Doxasozin and Aspirin 81mg PMD: Dr. Vazquez Review of Systems - Review of Systems Review of Systems: As stated in HPI, otherwise negative Past Patient History - Infectious Disease Hx of Infectious Diseases: None - Tetanus Immunizations Tetanus Immunization: Unknown - Past Social History Smoking Status: Never Smoked - CARDIAC Hx Hypertension: Yes - PULMONARY Hx Respiratory Disorders: Yes Hx Chronic Obstructive Pulmonary Disease (COPD): Yes - NEUROLOGICAL Hx Neurological Disorder: No - HEENT Hx HEENT Problems: No - RENAL Hx Renal (Kidney) Cancer: Yes (R nephrectomy) - ENDOCRINE/METABOLIC Hx Endocrine Disorders: No - HEMATOLOGICAL/ONCOLOGICAL Hx Blood Transfusions: No Hx Blood Transfusion Reaction: No - INTEGUMENTARY Hx Dermatological Problems: No - MUSCULOSKELETAL/RHEUMATOLOGICAL Hx Musculoskeletal Disorders: No Hx Falls: No - GASTROINTESTINAL Hx Gastrointestinal Disorders: No - GENITOURINARY/GYNECOLOGICAL Hx Genitourinary Disorders: No - PSYCHIATRIC Hx Depression: No Hx Emotional Abuse: No Hx Physical Abuse: No Hx Substance Use: No - SURGICAL HISTORY Hx Surgeries: Yes Other/Comment: Nephrectomy. hernia repair - ANESTHESIA Hx Anesthesia: Yes Hx Anesthesia Reactions: No Hx Malignant Hyperthermia: No Meds Allergies/Adverse Reactions: Allergies Allergy/AdvReac Type Severity Reaction Status Date / Time Penicillins Allergy RASH Verified 12/15/17 20:40 Sulfa (Sulfonamide Allergy RASH Verified 12/15/17 20:40 Antibiotics) - Medications Medications: Current Medications Acetaminophen (Tylenol 325mg Tab) 650 mg PO Q6H PRN PRN Reason: Pain, moderate (4-7) Atorvastatin Calcium (Lipitor) 10 mg PO HS [facility] Last Admin: 12/20/17 21:29 Dose: 10 mg Doxazosin Mesylate (Cardura) 8 mg PO HS [facility] Last Admin: 12/20/17 22:00 Dose: 8 mg Finasteride (Proscar) 5 mg PO DAILY [facility] Last Admin: 12/21/17 10:19 Dose: 5 mg Losartan Potassium (Cozaar) 100 mg PO DAILY [facility] Last Admin: 12/21/17 10:19 Dose: 100 mg Pantoprazole Sodium (Protonix Ec Tab) 40 mg PO 0600 [facility] Last Admin: 12/21/17 05:56 Dose: 40 mg Tiotropium [place] (Spiriva) 18 mcg IH DAILY [facility] Last Admin: 12/21/17 10:19 Dose: 18 mcg Physical Exam - Constitutional Appears: Non-toxic, No Acute Distress - Head Exam Head Exam: ATRAUMATIC, NORMOCEPHALIC - Eye Exam Eye Exam: EOMI, Normal appearance - ENT Exam ENT Exam: Mucous Membranes Moist - Neck Exam Neck exam: Positive for: Full Rom, Normal Inspection. Negative for: Lymphadenopathy, Meningismus, Tenderness, Thyromegaly - Respiratory Exam Respiratory Exam: Clear to Auscultation Bilateral, NORMAL BREATHING PATTERN. absent: Accessory Muscle Use, Decreased Breath Sounds, Prolonged Expiratory Phase, Rales, Rhonchi, Wheezes, Respiratory Distress - Cardiovascular Exam Cardiovascular Exam: REGULAR RHYTHM, RRR, +S1, +S2 - GI/Abdominal Exam GI & Abdominal Exam: Normal Bowel Sounds, Soft. absent: Tenderness - Extremities Exam Extremities exam: Positive for: calf tenderness (Left), joint swelling (non- pitting edema to the LLE extending to mid calf), normal capillary refill, pedal edema, tenderness, pedal pulses present Additional comments: Ecchymosis to distal left mid calf - Neurological Exam Neurological exam: Alert, Oriented x3 - Psychiatric Exam Psychiatric exam: Normal Affect, Normal Mood - Skin Skin Exam: Dry, Warm Results - Vital Signs Recent Vital Signs: Last Vital Signs Temp 98.3 F 12/21/17 17:06 Pulse 70 12/21/17 17:06 Resp 18 12/21/17 17:06 BP 130/62 12/21/17 17:06 Pulse Ox 98 12/21/17 17:06 - Labs Result Diagrams: 12/18/17 05:45 12/18/17 05:45 Assessment & Plan - Assessment and Plan (Free Text) Assessment: 87 year old male with a past medical history significant for right renal cell carcinoma s/p total right nephrectomy, HTN, HLD, COPD, BPH and DILLON who originally presented with redness, warmth, swelling and pain for three days which began three days after being on a 12 hour flight from [place]. Found to have hematoma that appears to be increasing in size on serial imaging. Hematology/Oncology consulted to rule out coagulopathy. Plan: -IR Consultation, all recommendations appreciated; Evaluation for possibility of IR drainage -PT/PTT normal on 12/15; Further coagulable workup pending repeat PT/PTT -Platelet count normal on 12/18; AM CBC pending -Repeat CT LLE without contrast (s/p total right nephrectomy) pending -Hold all anticoagulation used for DVT prophylaxis and Aspirin 81mg -Further recommendations per Dr. Guajardo Patient seen and case discussed with attending, Dr. Guajardo. Isaías Snow PGY2 - Date & Time Date: 12/21/17 Time: 17:31
[2017-12-22] MEDS: Pantoprazole 40 mg EC Tab PO SCH (05:35)
[2017-12-22 06:54] LABS: INR 1.16; PARTIAL THROMBOPLASTIN TIME 28.9 Seconds (25.1-36.5); PROTHROMBIN TIME 13.4 SECONDS (9.4-12.5)
[2017-12-22 07:22] LABS: BASO # 0.01 K/mm3 (0.0-2.0); BASO % 0.2 % (0.0-3.0); EOS # 0.4 (0.0-0.7); EOS % 5.9 % (1.5-5.0); GRAN # 3.12 (1.4-6.5); GRAN % 49.9 % (50.0-68.0); HEMOGLOBIN 9.8 g/dL (14.0-18.0); LYMPH # 2.1 (1.2-3.4); LYMPH % 33.7 % (22.0-35.0); MEAN CELL VOLUME 93.2 fl (80.0-105.0); MEAN CORPUSCULAR HEMOGLOBIN 31.5 pg (25.0-35.0); MEAN CORPUSCULAR HGB CONC 33.8 g/dl (31.0-37.0); MEAN PLATELET VOLUME 10.4 fl (7.0-11.0); MONO # 0.6 (0.1-0.6); MONO % 10.3 % (1.0-6.0); RBC 3.11 10^6/uL (3.5-6.1); WHITE BLOOD COUNT 6.2 10^3/uL (4.5-11.0)
[2017-12-22 07:34] LABS: ALB/GLOB RATIO 0.9 (1.1-1.8); ALBUMIN 3.2 g/dL (3.0-4.8); CALCIUM 8.7 mg/dL (8.4-10.5)
--- NOTE | 2017-12-22 07:49 | CP.PCM.PN ---
Subjective - Date & Time of Evaluation Date of Evaluation: 12/22/17 Time of Evaluation: 07:44 - Subjective Subjective: Krysta Barlow, PGY-1, Surgery Progress Note for Dr. Briggs Patient seen and examined at bedside. Patient had no acute overnight events. Patient reports improved swelling but still reports that it has been hard for him to ambulate. Patient denies erythema, warmth, fever, chest pain, shortness of breath, nausea, vomiting, diarrhea, dysuria, and hematuria. 12-point ROS is unremarkable except for what is mentioned above. Objective - Vital Signs/Intake and Output Vital Signs (last 24 hours): Temp Pulse Resp BP Pulse Ox 98.3 F 70 18 130/62 98 12/21/17 17:06 12/21/17 17:06 12/21/17 17:06 12/21/17 17:06 12/21/17 17:06 Intake and Output: 12/22/17 12/22/17 06:59 18:59 Intake Total 240 Balance 240 - Medications Medications: Current Medications Acetaminophen (Tylenol 325mg Tab) 650 mg PO Q6H PRN PRN Reason: Pain, moderate (4-7) Atorvastatin Calcium (Lipitor) 10 mg PO HS [facility] Last Admin: 12/21/17 21:07 Dose: 10 mg Doxazosin Mesylate (Cardura) 8 mg PO HS [facility] Last Admin: 12/21/17 21:07 Dose: 8 mg Finasteride (Proscar) 5 mg PO DAILY [facility] Last Admin: 12/21/17 10:19 Dose: 5 mg Losartan Potassium (Cozaar) 100 mg PO DAILY [facility] Last Admin: 12/21/17 10:19 Dose: 100 mg Pantoprazole Sodium (Protonix Ec Tab) 40 mg PO 0600 [facility] Last Admin: 12/22/17 05:35 Dose: 40 mg Tiotropium [place] (Spiriva) 18 mcg IH DAILY [facility] Last Admin: 12/21/17 10:19 Dose: 18 mcg - Labs Labs: 12/22/17 06:20 12/22/17 06:20 PT 13.4 SECONDS (9.4-12.5) H 12/22/17 06:20 INR 1.16 12/22/17 06:20 APTT 28.9 Seconds (25.1-36.5) 12/22/17 06:20 - Constitutional Appears: Well, Non-toxic, No Acute Distress - Head Exam Head Exam: ATRAUMATIC, NORMAL INSPECTION, NORMOCEPHALIC - Eye Exam Eye Exam: EOMI Pupil Exam: PERRL - ENT Exam ENT Exam: Mucous Membranes Moist - Neck Exam Neck Exam: Full ROM - Respiratory Exam Respiratory Exam: Clear to Ausculation Bilateral, NORMAL BREATHING PATTERN - Cardiovascular Exam Cardiovascular Exam: REGULAR RHYTHM - GI/Abdominal Exam GI & Abdominal Exam: Soft, Normal Bowel Sounds. absent: Tenderness - Extremities Exam Additional comments: Left lower extremity mass palpated in posterior lateral calf. Warmth, edema, erythema present. - Back Exam Back Exam: NORMAL INSPECTION Additional comments: mann's sign positive - Neurological Exam Neurological Exam: Alert, Awake, CN II-XII Intact, Oriented x3 - Skin Skin Exam: Dry, Intact, Petechiae Additional comments: improved on left lower extremity close to ankle Assessment and Plan - Assessment and Plan (Free Text) Assessment: 87 year old male with past medical history of right renal cell carcinoma s/p R nephrectomy, HTN, HLD, COPD, BPH, DILLON presented with redness, warmth, swelling and pain for 3 days prior to presentation to emergency department 6 days after being on 12 hour flight to [place]. Patient consulted for surgery for evaluation and management of enlarging hematoma in left calf causing extreme discomfort. Plan: -CT scan: self read as likely hematoma in left posterior medial calf -Likely no drainage by IR. -Possible plans for OR. -Patient should be out of bed. -Replete electrolytes as needed -DVT prophylaxis held due to possible small bleed. GI prophylaxis with protonix. Will discuss plan with Dr. Briggs
[2017-12-22 08:52] VITALS: BP 133/68; PULSE 92; RESP 20; TEMP 98.6; O2SAT 95
[2017-12-22] MEDS: Tiotropium 18 mcg Cap For Inhalation IH SCH (10:15)
--- NOTE | 2017-12-22 11:02 | CT ---
Date of service: 12/21/2017 PROCEDURE: HISTORY: LLE swelling, calf tenderness COMPARISON: TECHNIQUE: FINDINGS: No fracture dislocation. Extensive fatty atrophy of the posterior compartment. Roughly 10.1 x 4.3 centimeter longitudinally oriented mass in the medial calf possibly representing a hematoma in the setting of recent trauma though a malignant tumor is not excluded. Recommend correlation with MRI. IMPRESSION: Roughly 10.1 x 4.3 centimeter longitudinally oriented mass in the medial calf possibly representing a hematoma in the setting of recent trauma though a malignant tumor is not excluded. Recommend correlation with MRI.
--- NOTE | 2017-12-22 14:56 | CP.PCM.DIS ---
<Beka Paulino - Last Filed: 12/22/17 18:33> Provider - Provider Date of Admission: 12/18/17 15:25 Attending physician: Chris Davis MD Time Spent in preparation of Discharge (in minutes): 40 Hospital Course - Lab Results Lab Results: Micro Results 12/15/17 21:05 Blood Blood Culture - Final NO GROWTH AFTER 5 DAYS 12/15/17 21:05 Blood Gram Stain - Final TEST NOT PERFORMED 12/15/17 20:55 Blood Blood Culture - Final NO GROWTH AFTER 5 DAYS 12/15/17 20:55 Blood Gram Stain - Final TEST NOT PERFORMED Most Recent Lab Values WBC 6.2 10^3/uL (4.5-11.0) 12/22/17 06:20 RBC 3.11 10^6/uL (3.5-6.1) L 12/22/17 06:20 Hgb 9.8 g/dL (14.0-18.0) L 12/22/17 06:20 Hct 29.0 % (42.0-52.0) L 12/22/17 06:20 MCV 93.2 fl (80.0-105.0) 12/22/17 06:20 MCH 31.5 pg (25.0-35.0) 12/22/17 06:20 MCHC 33.8 g/dl (31.0-37.0) 12/22/17 06:20 RDW 14.0 % (11.5-14.5) 12/22/17 06:20 Plt Count 216 10^3/uL (120.0-450.0) 12/22/17 06:20 MPV 10.4 fl (7.0-11.0) 12/22/17 06:20 Gran % 49.9 % (50.0-68.0) L 12/22/17 06:20 Lymph % (Auto) 33.7 % (22.0-35.0) 12/22/17 06:20 [place] % (Auto) 10.3 % (1.0-6.0) H 12/22/17 06:20 Eos % (Auto) 5.9 % (1.5-5.0) H 12/22/17 06:20 Baso % (Auto) 0.2 % (0.0-3.0) 12/22/17 06:20 Gran # 3.12 (1.4-6.5) 12/22/17 06:20 Lymph # (Auto) 2.1 (1.2-3.4) 12/22/17 06:20 [place] # (Auto) 0.6 (0.1-0.6) 12/22/17 06:20 Eos # (Auto) 0.4 (0.0-0.7) 12/22/17 06:20 Baso # (Auto) 0.01 K/mm3 (0.0-2.0) 12/22/17 06:20 ESR 52 mm/hr (0.00-15.0) H 12/17/17 10:00 PT 13.4 SECONDS (9.4-12.5) H 12/22/17 06:20 INR 1.16 12/22/17 06:20 APTT 28.9 Seconds (25.1-36.5) 12/22/17 06:20 Fibrinogen 476 mg/dl (200-400) H 12/22/17 09:30 Fibrin Degrad Products >10 <40 ug/ml (< 10 ug/mL) 12/22/17 09:30 D-Dimer, Quantitative 349 ng/mlDDU (0-243) H 12/16/17 17:17 Sodium 136 mmol/L (132-148) 12/22/17 06:20 Potassium 4.3 mmol/L (3.6-5.0) 12/22/17 06:20 Chloride 108 mmol/L (98-107) H 12/22/17 06:20 Carbon Dioxide 23 mmol/L (21-33) 12/22/17 06:20 Anion Gap 9 (10-20) L 12/22/17 06:20 BUN 24 mg/dL (7-21) H 12/22/17 06:20 Creatinine 1.6 mg/dl (0.8-1.5) H 12/22/17 06:20 Est GFR ( Amer) 50 12/22/17 06:20 Est GFR (Non-Af Amer) 41 12/22/17 06:20 Random Glucose 87 mg/dL (70-110) 12/22/17 06:20 Hemoglobin A1c 5.5 % (4.2-6.5) 12/16/17 08:00 Calcium 8.7 mg/dL (8.4-10.5) 12/22/17 06:20 Phosphorus 3.1 mg/dL (2.5-4.5) 12/22/17 06:20 Magnesium 2.0 mg/dL (1.7-2.2) 12/22/17 06:20 Total Bilirubin 0.9 mg/dL (0.2-1.3) 12/22/17 06:20 AST 38 U/L (17-59) 12/22/17 06:20 ALT 36 U/L (7-56) 12/22/17 06:20 Alkaline Phosphatase 68 U/L (38-126) 12/22/17 06:20 C-Reactive Protein 8.70 mg/L (0.0-9.9) 12/17/17 08:31 Total Protein 6.6 g/dL (5.8-8.3) 12/22/17 06:20 Albumin 3.2 g/dL (3.0-4.8) 12/22/17 06:20 Globulin 3.4 gm/dL 12/22/17 06:20 Albumin/Globulin Ratio 0.9 (1.1-1.8) L 12/22/17 06:20 Urine Color Light yellow (YELLOW) 12/15/17 22:41 Urine Appearance Clear (CLEAR) 12/15/17 22:41 Urine pH 7.0 (4.7-8.0) 12/15/17 22:41 Ur Specific [place] <= 1.005 (1.005-1.035) 12/15/17 22:41 Urine Protein Negative mg/dL (<30 mg/dL) 12/15/17 22:41 Urine Glucose (UA) Negative mg/dL (NEGATIVE) 12/15/17 22:41 Urine Ketones Negative mg/dL (NEGATIVE) 12/15/17 22:41 Urine Blood Negative (NEGATIVE) 12/15/17 22:41 Urine Nitrate Negative (NEGATIVE) 12/15/17 22:41 Urine Bilirubin Negative (NEGATIVE) 12/15/17 22:41 Urine Urobilinogen 0.2 E.U./dL (<1 E.U./dL) 12/15/17 22:41 Ur Leukocyte Esterase Negative Kim/uL (NEGATIVE) 12/15/17 22:41 - Hospital Course Hospital Course: HPI: Mr Bliss is a 87 year old male with past medical history of right renal cell carcinoma status-post right nephrectomy, hypertension, hyperlipidemia, COPD, BPH, and obstructive sleep apnea on night home oxygen who presented with redness, swelling, and pain to the left calf for 3 days. Patient states he arrived from a 12 hour flight from [place] 6 days ago, and the the next day he began experiencing symptoms of sharp L calf pain. Patient visited a satellite site in [place], where an ultrasound was performed. Per the patient the imaging showed no DVT or clot found. Patient was informed he had an unknown 11cm lesion on his knee, with possible differential of hematoma, abscess, or cyst. Patient was discharged without antibiotics and told to follow up with outpatient with primary care physician. Patient followed up, and PCP sent patient to ED for CT of left lower extremity for further evaluation. Patient denies any fever, chil ls, shortness of breath, chest pain, palpitations, back pain, neck pain, abdominal pain, nausea/vomiting/diarrhea or any changes to urinary and bowel habits. No recent history of Calcium channel natali usage. During course of admission Lower Extremity CT showed diffuse left lower extremity cellulitis. Pt was started on 5 day course of Clindaycin. LLE US on 12/17 was negative for DVT. Positive for 5cm heterogeneous collection in the medial calf. X ray of Lower extremity showed mild osteoarthritic joint changes but no fractures. LLE MRI showed large ovoid collection measuring 5.8 x 3.0 x 12.2cm. Mass appeared to originate at the facial interface of the medial head of the gastrocnemious muscle, with apparent compressive mass effect on the medial head of the gastroc muscle. Uncertain etiology. Moderate to severe atrophy of the medial and lateral heads fo the gastrocnemeous muscle as well as the soleus musculature. Reticulation and edema within the circumfrential subcutaneous soft tissues which may represent underlying acute inflammatory and infectious changes. Repeat US on 12/21 was negative for DVT. 3.2 x 8.8cm heterogeneous hypoechoic collection in the left calf. Possible hematoma. Lower extremity CT showed 10.1 x 4.3cm longitudinally oriented mass in the medial calf possible representing hematoma. Due to large hematoma, heparin was held. Surgery was consulted for possible dr rodriguez. Heme Onc was consulted for coagulopathy work up in the setting of spontaneous hematoma. Interventional radiology was consulted for possible drainage. Pt is currently medically stable for discharge to the [facility]. Patient was made aware of all findings and course of action and is amenablr. - Date & Time of H&P Date of H&P: 12/22/17 Time of H&P: 14:57 Discharge Exam - Head Exam Head Exam: ATRAUMATIC, NORMAL INSPECTION, NORMOCEPHALIC - Eye Exam Eye Exam: EOMI, Normal appearance Pupil Exam: NORMAL ACCOMODATION - ENT Exam ENT Exam: Mucous Membranes Moist - Neck Exam Neck exam: Full Rom, Normal Inspection - Respiratory Exam Respiratory Exam: Clear to PA & Lateral, NORMAL BREATHING PATTERN, UNREMARKABLE. absent: Rales, Rhonchi, Wheezes, Respiratory Distress, Stridor - Cardiovascular Exam Cardiovascular Exam: REGULAR RHYTHM, +S1, +S2 - GI/Abdominal Exam GI & Abdominal Exam: Normal Bowel Sounds, Soft, Unremarkable. absent: Distended, Firm, Guarding, Rebound, Tenderness - Extremities Exam Extremities exam: calf tenderness (Left), normal capillary refill, pedal pulses present Additional comments: Swelling of the L calf muscle noted, non-erythematous, TTP - Back Exam Back exam: NORMAL INSPECTION - Neurological Exam Neurological exam: Alert, CN II-XII Intact, Oriented x3 - Psychiatric Exam Psychiatric exam: Normal Affect, Normal Mood - Skin Skin Exam: Dry, Intact, Normal Color Additional comments: Ecchymosis to distal left mid calf Discharge Plan - Follow Up Plan Condition: STABLE Disposition: REHAB FACILITY/REHAB UNIT Instructions: Deep Vein Thrombosis (Blood Clots in the Legs) (DC), How to Prevent Blood Clots Additional Instructions: Patient is medically stable for discharge to TCU, as per Dr. Davis. <Chris Davis - Last Filed: 12/23/17 14:00> Provider - Provider Date of Admission: 12/18/17 15:25 Attending physician: Chris Davis MD Hospital Course - Lab Results Lab Results: Micro Results 12/15/17 21:05 Blood Blood Culture - Final NO GROWTH AFTER 5 DAYS 12/15/17 21:05 Blood Gram Stain - Final TEST NOT PERFORMED 12/15/17 20:55 Blood Blood Culture - Final NO GROWTH AFTER 5 DAYS 12/15/17 20:55 Blood Gram Stain - Final TEST NOT PERFORMED Most Recent Lab Values WBC 6.2 10^3/uL (4.5-11.0) 12/22/17 06:20 RBC 3.11 10^6/uL (3.5-6.1) L 12/22/17 06:20 Hgb 9.8 g/dL (14.0-18.0) L 12/22/17 06:20 Hct 29.0 % (42.0-52.0) L 12/22/17 06:20 MCV 93.2 fl (80.0-105.0) 12/22/17 06:20 MCH 31.5 pg (25.0-35.0) 12/22/17 06:20 MCHC 33.8 g/dl (31.0-37.0) 12/22/17 06:20 RDW 14.0 % (11.5-14.5) 12/22/17 06:20 Plt Count 216 10^3/uL (120.0-450.0) 12/22/17 06:20 MPV 10.4 fl (7.0-11.0) 12/22/17 06:20 Gran % 49.9 % (50.0-68.0) L 12/22/17 06:20 Lymph % (Auto) 33.7 % (22.0-35.0) 12/22/17 06:20 [place] % (Auto) 10.3 % (1.0-6.0) H 12/22/17 06:20 Eos % (Auto) 5.9 % (1.5-5.0) H 12/22/17 06:20 Baso % (Auto) 0.2 % (0.0-3.0) 12/22/17 06:20 Gran # 3.12 (1.4-6.5) 12/22/17 06:20 Lymph # (Auto) 2.1 (1.2-3.4) 12/22/17 06:20 [place] # (Auto) 0.6 (0.1-0.6) 12/22/17 06:20 Eos # (Auto) 0.4 (0.0-0.7) 12/22/17 06:20 Baso # (Auto) 0.01 K/mm3 (0.0-2.0) 12/22/17 06:20 ESR 52 mm/hr (0.00-15.0) H 12/17/17 10:00 PT 13.4 SECONDS (9.4-12.5) H 12/22/17 06:20 INR 1.16 12/22/17 06:20 APTT 28.9 Seconds (25.1-36.5) 12/22/17 06:20 Fibrinogen 476 mg/dl (200-400) H 12/22/17 09:30 Fibrin Degrad Products >10 <40 ug/ml (< 10 ug/mL) 12/22/17 09:30 D-Dimer, Quantitative 349 ng/mlDDU (0-243) H 12/16/17 17:17 Sodium 136 mmol/L (132-148) 12/22/17 06:20 Potassium 4.3 mmol/L (3.6-5.0) 12/22/17 06:20 Chloride 108 mmol/L (98-107) H 12/22/17 06:20 Carbon Dioxide 23 mmol/L (21-33) 12/22/17 06:20 Anion Gap 9 (10-20) L 12/22/17 06:20 BUN 24 mg/dL (7-21) H 12/22/17 06:20 Creatinine 1.6 mg/dl (0.8-1.5) H 12/22/17 06:20 Est GFR ( Amer) 50 12/22/17 06:20 Est GFR (Non-Af Amer) 41 12/22/17 06:20 Random Glucose 87 mg/dL (70-110) 12/22/17 06:20 Hemoglobin A1c 5.5 % (4.2-6.5) 12/16/17 08:00 Calcium 8.7 mg/dL (8.4-10.5) 12/22/17 06:20 Phosphorus 3.1 mg/dL (2.5-4.5) 12/22/17 06:20 Magnesium 2.0 mg/dL (1.7-2.2) 12/22/17 06:20 Total Bilirubin 0.9 mg/dL (0.2-1.3) 12/22/17 06:20 AST 38 U/L (17-59) 12/22/17 06:20 ALT 36 U/L (7-56) 12/22/17 06:20 Alkaline Phosphatase 68 U/L (38-126) 12/22/17 06:20 C-Reactive Protein 8.70 mg/L (0.0-9.9) 12/17/17 08:31 Total Protein 6.6 g/dL (5.8-8.3) 12/22/17 06:20 Albumin 3.2 g/dL (3.0-4.8) 12/22/17 06:20 Globulin 3.4 gm/dL 12/22/17 06:20 Albumin/Globulin Ratio 0.9 (1.1-1.8) L 12/22/17 06:20 Urine Color Light yellow (YELLOW) 12/15/17 22:41 Urine Appearance Clear (CLEAR) 12/15/17 22:41 Urine pH 7.0 (4.7-8.0) 12/15/17 22:41 Ur Specific [place] <= 1.005 (1.005-1.035) 12/15/17 22:41 Urine Protein Negative mg/dL (<30 mg/dL) 12/15/17 22:41 Urine Glucose (UA) Negative mg/dL (NEGATIVE) 12/15/17 22:41 Urine Ketones Negative mg/dL (NEGATIVE) 12/15/17 22:41 Urine Blood Negative (NEGATIVE) 12/15/17 22:41 Urine Nitrate Negative (NEGATIVE) 12/15/17 22:41 Urine Bilirubin Negative (NEGATIVE) 12/15/17 22:41 Urine Urobilinogen 0.2 E.U./dL (<1 E.U./dL) 12/15/17 22:41 Ur Leukocyte Esterase Negative Kim/uL (NEGATIVE) 12/15/17 22:41 Attending/Attestation - Attestation I have personally seen and examined this patient.: Yes I have fully participated in the care of the patient.: Yes I have reviewed all pertinent clinical information, including history, physical exam and plan: Yes Notes (Text): 12/22/17 87 year old male with past medical history of renal cell cancer s/p right nephrectomy, hypertension, and dylipidemia who presented with left leg pain and swelling. He was found to have left leg cellulitis and possible hematoma. CT, MRI and LE dopplers reviewed as above; negative for DVT. He was seen by orthopedic and surgery who recommended CT venogram which patient refused. Patient was on antibiotics. Cellulitis has improved. Yesterday he complained of increased pain and swelling for which repeat doppler which showed hematoma. IR evaluation was appreciated today who recommended compression stocking, analgesics and TCU. Patient is on losartan for hypertension; HCTZ was held due to acute on chronic kidney disease which improved. Patient will be transferred to TCU today for physical therapy. Chris Davis MD Hospitalist.
--- NOTE | 2017-12-22 17:09 | CP.PCM.PN ---
Subjective - Date & Time of Evaluation Date of Evaluation: 12/22/17 Time of Evaluation: 17:02 - Subjective Subjective: Hematology/Oncology Progress Note (Dr. Guajardo's Service) Patient seen and assessed at bedside. No acute events noted overnight. Patient reports that his LLE pain and swelling have improved overnight. Patient denies any further complaints at this time including fevers, chills, headache, chest pain, SOB, abdominal pain, N/V/D/C, changes in urine output, skin changes or any numbness/tingling of any extremity. Objective - Vital Signs/Intake and Output Vital Signs (last 24 hours): Temp Pulse Resp BP Pulse Ox 98.6 F 92 H 20 133/68 95 12/22/17 06:00 12/22/17 06:00 12/22/17 06:00 12/22/17 06:00 12/22/17 06:00 Intake and Output: 12/22/17 12/22/17 06:59 18:59 Intake Total 240 Balance 240 - Medications Medications: Current Medications Aspirin (Aspirin Chewable) 81 mg PO DAILY VAN - Labs Labs: 12/22/17 06:20 12/22/17 06:20 PT 13.4 SECONDS (9.4-12.5) H 12/22/17 06:20 INR 1.16 12/22/17 06:20 APTT 28.9 Seconds (25.1-36.5) 12/22/17 06:20 - Additional Findings Additional findings: - Constitutional Appears: Non-toxic, No Acute Distress - Head Exam Head Exam: ATRAUMATIC, NORMOCEPHALIC - Eye Exam Eye Exam: EOMI, Normal appearance - ENT Exam ENT Exam: Mucous Membranes Moist - Neck Exam Neck exam: Positive for: Full Rom, Normal Inspection. Negative for: Lymphadenopathy, Meningismus, Tenderness, Thyromegaly - Respiratory Exam Respiratory Exam: Clear to Auscultation Bilateral, NORMAL BREATHING PATTERN. absent: Accessory Muscle Use, Decreased Breath Sounds, Prolonged Expiratory Phase, Rales, Rhonchi, Wheezes, Respiratory Distress - Cardiovascular Exam Cardiovascular Exam: REGULAR RHYTHM, RRR, +S1, +S2 - GI/Abdominal Exam GI & Abdominal Exam: Normal Bowel Sounds, Soft. absent: Tenderness - Extremities Exam Extremities exam: Positive for: calf tenderness (Left; Interval improvement noted), joint swelling (non-pitting edema to the LLE extending to mid calf; Interval improvement noted), normal capillary refill, pedal edema, tenderness, pedal pulses present Additional comments: Ecchymosis to distal left mid calf; Interval improvement noted - Neurological Exam Neurological exam: Alert, Oriented x3 - Psychiatric Exam Psychiatric exam: Normal Affect, Normal Mood - Skin Skin Exam: Dry, Warm Assessment and Plan - Assessment and Plan (Free Text) Assessment: 87 year old male with a past medical history significant for right renal cell carcinoma s/p total right nephrectomy, HTN, HLD, COPD, BPH and DILLON who originally presented with redness, warmth, swelling and pain for three days which began three days after being on a 12 hour flight from [place]. Found to have hematoma that appears to be increasing in size on serial imaging. Hematology/Oncology consulted to rule out coagulopathy. Plan: -IR Consultation, all recommendations appreciated; Evaluation for possibility of IR drainage -Surgery consulted, all recommendations appreciated -PT elevated at 13.4; APL AB, Lupus AB, Fibrinogen, FDP, Vitamin K and Activity of Factors II, V, VII and X pending -INR at 1.16 and PTT normal -Platelet count normal -Repeat CT LLE without contrast (s/p total right nephrectomy) showing no i nterval changes in hematoma -Ok to resume DVT prophylaxis and Aspirin 81mg; Should be stopped if patient develops worsening pain or increase in size of hematoma -Further recommendations per Dr. Guajardo/Dr. Gómez Patient seen and case discussed with attending, Dr. Gómez. Isaías Snow PGY2
--- NOTE | 2017-12-22 20:46 | CON ---
DATE: 12/22/2017 TIME: 1:40 p.m. CHIEF COMPLAINT/HISTORY OF PRESENT ILLNESS: This is an 87-year-old gentleman who was admitted with a symptomatic left calf hematoma. His history is significant for air travel from [place] in the last week. 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 Venous ultrasound on admission demonstrated no DVT and a heterogeneous collection in the left calf. The differential includes hematoma or infection. Additional studies have confirmed the presence of a hematoma in the left calf. This includes CT and MRI. The calf is wrapped and soft with some tenderness medially. He does not appear to have a compartment syndrome. Motor and sensation are intact. His pedal pulses are easily palpable. The patient is not coagulopathic. He is not on significant anticoagulation at the time of trauma. He has been on DVT prophylaxis since admission. There is some question that the hematoma has increased slightly since admission. RECOMMENDATIONS: A compression stocking or wrap should be applied to the left calf. Ice can be utilized for symptomatic relief. Analgesics as necessary. I would begin physical therapy given the patient has been at bedrest for 7-8 days. I spoke with Dr. Palomino and Dr. Vazquez. Darnell Nielson MD MTDD
== END 2017-12-22 14:02 | DRG 603 ==
LOC: ED 19:12 → ERH 23:00 → 3RNO 12-16 02:13 → OBSVTOIN 12-18 15:25
PROVIDERS: ADMIT Internal Medicine; ATTEND Internal Medicine
DX: L03.116 Cellulitis of left lower limb (principal); N17.9 Acute kidney failure, unspecified; S80.02XA Contusion of left knee, initial encounter; M79.81 Nontraumatic hematoma of soft tissue; N40.0 Benign prostatic hyperplasia without lower urinary tract symptoms; J44.9 Chronic obstructive pulmonary disease, unspecified; G47.33 Obstructive sleep apnea (adult) (pediatric); I12.9 Hypertensive chronic kidney disease with stage 1 through stage 4 chronic kidney disease, or unspecified chronic kidney disease; N18.9 Chronic kidney disease, unspecified; M17.12 Unilateral primary osteoarthritis, left knee; E78.5 Hyperlipidemia, unspecified; Z85.528 Personal history of other malignant neoplasm of kidney; Z90.5 Acquired absence of kidney

== ENCOUNTER 2017-12-22 14:07 | Inpatient (IN) | payer OTHER ==
[2017-12-22 14:54] VITALS: BMI 27.1
[2017-12-22] MEDS ORDERED: Pneumococcal 23-Valent Vaccine IM ONE (18:28)
[2017-12-22] MEDS ORDERED: Influenza Vaccine 60 mcg/0.5 mL SYR (4YR UP) IM ONE (18:28)
[2017-12-22] MEDS ORDERED: DOXAZOSIN MESYLATE 8 MG PO SCH ×2 (22:00)
[2017-12-22] MEDS: DOXAZOSIN 8 MG PO SCH (22:18)
[2017-12-23] MEDS: Pantoprazole 40 mg EC Tab PO SCH (06:43)
[2017-12-23] MEDS: Tiotropium 18 mcg Cap For Inhalation IH SCH (10:33)
--- NOTE | 2017-12-23 14:20 | CP.PCM.HP ---
<RobAntonio - Last Filed: 12/23/17 14:29> History of Present Illness - History of Present Illness History of Present Illness: 87 M with PMHx of R renal cell carcinoma s/p R nephrectomy, HTN, HLD, COPD, BPH, and DILLON on night home O2 who presents with redness, swelling, and pain to the le ft calf x 3 days. Patient states he arrived from a 12 hour flight prior to admission, and the the next day he began experiencing symptoms of sharp L calf pain. Patient had an unknown 11cm lesion on his knee, with possible differential of hematoma, abscess, or cyst. Patient was discharged without antibiotics and told to follow up with outpatient with primary care physician. Patient followed up, and PCP sent patient to ED for CT of LLE for further evaluation. Pt will continue treatment for cellulitis while in TCU. Present on Admission - Present on Admission Any Indicators Present on Admission: No Review of Systems - Review of Systems Review of Systems: a 12 point ROS was obtained and added to the HPI Past Patient History - Infectious Disease Hx of Infectious Diseases: None - Tetanus Immunizations Tetanus Immunization: Unknown - Past Social History Smoking Status: Never Smoked - CARDIAC Hx Hypercholesterolemia: Yes Hx Hypertension: Yes - PULMONARY Hx Chronic Obstructive Pulmonary Disease (COPD): Yes - NEUROLOGICAL Hx Neurological Disorder: No - HEENT Hx HEENT Problems: No - RENAL Hx Renal (Kidney) Cancer: Yes (R nephrectomy) - ENDOCRINE/METABOLIC Hx Endocrine Disorders: No - HEMATOLOGICAL/ONCOLOGICAL Hx Blood Transfusions: No Hx Blood Transfusion Reaction: No - INTEGUMENTARY Hx Dermatological Problems: No - MUSCULOSKELETAL/RHEUMATOLOGICAL Hx Falls: No - GASTROINTESTINAL Hx Gastrointestinal Disorders: No - GENITOURINARY/GYNECOLOGICAL Hx Genitourinary Disorders: Yes (R RENAL CELL CA WITH NEPHRECTOMY) Hx Reproductive Disorders: Yes (BPH) - PSYCHIATRIC Hx Depression: No Hx Emotional Abuse: No Hx Physical Abuse: No Hx Substance Use: No - SURGICAL HISTORY Hx Surgeries: Yes Other/Comment: Nephrectomy. hernia repair - ANESTHESIA Hx Anesthesia: Yes Hx Anesthesia Reactions: No Hx Malignant Hyperthermia: No Meds Allergies/Adverse Reactions: Allergies Allergy/AdvReac Type Severity Reaction Status Date / Time Penicillins Allergy RASH Verified 12/22/17 16:26 Sulfa (Sulfonamide Allergy RASH Verified 12/22/17 16:26 Antibiotics) Physical Exam - Constitutional Appears: Non-toxic, No Acute Distress - Head Exam Head Exam: ATRAUMATIC, NORMAL INSPECTION, NORMOCEPHALIC - Eye Exam Eye Exam: EOMI - ENT Exam ENT Exam: Mucous Membranes Moist - Respiratory Exam Respiratory Exam: Clear to Auscultation Bilateral, NORMAL BREATHING PATTERN. absent: Accessory Muscle Use, Wheezes, Respiratory Distress - Cardiovascular Exam Cardiovascular Exam: RRR, +S1, +S2. absent: Diastolic murmur, Systolic Murmur - GI/Abdominal Exam GI & Abdominal Exam: Normal Bowel Sounds, Soft. absent: Tenderness - Extremities Exam Extremities exam: Positive for: normal inspection, pedal pulses present. Negative for: calf tenderness, pedal edema, tenderness - Neurological Exam Neurological exam: Alert, Oriented x3 - Psychiatric Exam Psychiatric exam: Normal Affect, Normal Mood - Skin Skin Exam: Dry, Normal Color, Warm Results - Vital Signs Recent Vital Signs: Last Vital Signs Temp 97.7 F 12/23/17 06:00 Pulse 89 12/23/17 06:00 Resp 16 12/23/17 06:00 BP 112/62 12/23/17 06:00 Pulse Ox 95 12/23/17 06:00 Assessment & Plan - Assessment and Plan (Free Text) Assessment: 87 yo [place]ian M with PMHx of R renal cell carcinoma s/p R nephrectomy, HTN, HLD, COPD, BPH, DILLON presenting with diffuse LLE cellulitis, increased hematoma noted on LLE with no inciting trauma endorsed by patient. Plan: Diffuse LLE cellulitis, r/o possible hematoma vs DVT - pt is afebrile, no leukocytosis noted - CT Lower extremity (12/15): diffuse LLE cellulitis - LE U/S (12/15): no evidence of DVT, 1.7x 6.4 cm heterogeneous collection lateral to the knee, differential includes hematoma - LE U/S (12/17): no evidence of DVT, 5 cm heterogeneous collection in media calf, differential includes hematoma - LE U/S (12/21): no evidence of DVT, large hematoma 17.33 x 8.6 x 6.1 cm - Ortho recs (Dr. Palomino) appreciated - MRI LE (12/18): 5.8x3.0x12.2 cm ovoid collection within posterior medial calf, appears to be about and/or originate at the fascial interface of the medial head of the gastrocnemius muscle. Apparent compressive mass effect on the medial head of the gastrocnemius muscle. Uncertain etiology, may represent a large hematoma. Additional consideration includes abscess collection vs underlying lesion. - Surgery recs (Dr. Briggs) appreciated - Pt refuses CT venogram - reassessed pt (02/17), recommend d/c DVT ppx, heme/onc consult to r/o coagulopathy given large hematoma with no hx of trauma or inciting event - repeat CT w/o contrast LLE - consider drainage based on findings - Heme/Onc (Dr. Guajardo) on board - Tylenol 600 mg q6 PRN DWAYNE - Cr 1.6 HTN - Continue home Losartan HLD - Continue home Lipitor 10 mg COPD/DILLON - Continue supplemental O2, Spiriva PRN BPH - Continue home finasteride 5 mg PPx, Diet, Disposition - Protonix 40, 0600 SC - HHD - Disposition: F/U Heme/Onc recs, repeat CT LE. R/o coagulopathy. Possible surgical drainage, pending findings. Pt seen, examined, assessment and plan discussed with Dr Ryan Rivas PGY1 - Date & Time Date: 12/23/17 Time: 07:00 <Chris Davis - Last Filed: 12/23/17 19:10> Results - Vital Signs Recent Vital Signs: Last Vital Signs Temp 98.3 F 12/23/17 10:00 Pulse 90 12/23/17 10:00 Resp 15 12/23/17 10:00 BP 96/70 L 12/23/17 10:00 Pulse Ox 95 12/23/17 06:00 Attending/Attestation - Attestation I have personally seen and examined this patient.: Yes I have fully participated in the care of the patient.: Yes I have reviewed all pertinent clinical information: Yes Notes (Text): 12/23/17 19:06 87 year old male with past medical history of renal cell cancer s/p right nephrectomy, hypertension, and dylipidemia who presented with left leg pain and swelling. He was found to have left leg cellulitis and possible hematoma on CT, MRI and LE dopplers which was also negative for DVT. He was seen by orthopedic and surgery who recommended CT venogram which patient refused. Cellulitis improved and antibiotics were discontinued. He was seen by IR who recommended compression stockings, analgesics and physical therapy for which patient was transferred to TCU. Continue with compression stocking to leg. Continue with physical therapy. Continue with percocet prn for pain. Patient is on losartan for hypertension; HCTZ was held due to acute on chronic kidney disease which improved. CKD has been stable. Will repeat labs in AM (if patient allows). Chris Davis MD Hospitalist.
[2017-12-23] MEDS: Oxycodone/Acetaminophen 2.5/325 mg Tab PO PRN (19:32)
[2017-12-23] MEDS: DOXAZOSIN 8 MG PO SCH (21:15)
[2017-12-24] MEDS ORDERED: guaiFENesin 100 mg/5 ml Syrup UD PO STA (04:29)
[2017-12-24] MEDS: Pantoprazole 40 mg EC Tab PO SCH (06:00)
[2017-12-24] MEDS: Tiotropium 18 mcg Cap For Inhalation IH SCH (10:16)
[2017-12-24] MEDS: DOXAZOSIN 8 MG PO SCH (21:25)
[2017-12-24] MEDS: guaiFENesin 100 mg/5 ml Syrup UD PO PRN (21:25)
[2017-12-25] MEDS: Pantoprazole 40 mg EC Tab PO SCH (05:57)
[2017-12-25] MEDS: guaiFENesin 100 mg/5 ml Syrup UD PO PRN ×3 (05:58→21:40)
[2017-12-25] MEDS: Tiotropium 18 mcg Cap For Inhalation IH SCH (10:11)
[2017-12-25] MEDS: Oxycodone/Acetaminophen 2.5/325 mg Tab PO PRN (12:15)
[2017-12-25] MEDS ORDERED: Albuterol 0.042% Inhal Sol (1.25 mg/3 mL) UD IH PRN (13:04)
--- NOTE | 2017-12-25 13:34 | CP.PCM.PN ---
<Beka Paulino - Last Filed: 12/25/17 16:05> Subjective - Date & Time of Evaluation Date of Evaluation: 12/25/17 Time of Evaluation: 08:00 - Subjective Subjective: PGY-1 Medicine Progress Note for Dr. Asencio Patient seen and examined at bedside this AM. No acute events reported overnight. Tolerating PT well. Endorses some tenderness to R calf, difficulty ambulating. Pt encouraged to continue keeping legs elevated while in bed, transfer OOB to chair when possible, and continue working with PT for strength and conditioning. No fevers/chills, headaches, dizziness, changes in vision, chest pain, palpitations, sob, cough, abdominal pain, n/v/d/c, dysuria, or changes in stool. Objective - Vital Signs/Intake and Output Vital Signs (last 24 hours): Temp Pulse Resp BP Pulse Ox 98.0 F 98 H 16 132/67 96 12/24/17 16:00 12/25/17 11:58 12/24/17 16:00 12/24/17 16:00 12/25/17 11:58 - Medications Medications: Current Medications Albuterol Sulfate (Albuterol 0.042% Inhal Tanisha (1.25mg/3ml) Ud) 1.25 mg IH [id number] PRN PRN Reason: Shortness of Breath Aspirin (Aspirin Chewable) 81 mg PO DAILY [facility] Last Admin: 12/25/17 10:11 Dose: 81 mg Atorvastatin Calcium (Lipitor) 10 mg PO HS VAN; Protocol Last Admin: 12/24/17 21:25 Dose: 10 mg Finasteride (Proscar) 5 mg PO 0600 VAN; Protocol Last Admin: 12/25/17 05:57 Dose: 5 mg Guaifenesin (Robitussin) 100 mg PO Q6H PRN; Protocol PRN Reason: Cough Last Admin: 12/25/17 12:12 Dose: 100 mg Home Med (Home Med) 1 unit PO HS VAN Last Admin: 12/24/17 21:25 Dose: 1 unit Losartan Potassium (Cozaar) 100 mg PO DAILY [facility]; Protocol Last Admin: 12/25/17 10:11 Dose: 100 mg Oxycodone/Acetaminophen (Percocet 2.5/325 Mg Tab) 1 tab PO Q6H PRN PRN Reason: Pain, moderate (4-7) Last Admin: 12/25/17 12:15 Dose: 1 tab Pantoprazole Sodium (Protonix Ec Tab) 40 mg PO 0600 [facility]; Protocol Last Admin: 12/25/17 05:57 Dose: 40 mg Tiotropium [place] (Spiriva) 18 mcg IH DAILY [facility]; Protocol Last Admin: 12/25/17 10:11 Dose: 18 mcg - Constitutional Appears: Non-toxic, No Acute Distress - Head Exam Head Exam: ATRAUMATIC, NORMAL INSPECTION, NORMOCEPHALIC - Eye Exam Eye Exam: EOMI, Normal appearance - ENT Exam ENT Exam: Mucous Membranes Moist, Normal Exam - Neck Exam Neck Exam: Full ROM, Normal Inspection - Respiratory Exam Respiratory Exam: Clear to Ausculation Bilateral, NORMAL BREATHING PATTERN. absent: Rales, Rhonchi, Wheezes, Respiratory Distress, Stridor - Cardiovascular Exam Cardiovascular Exam: REGULAR RHYTHM, +S1, +S2 - GI/Abdominal Exam GI & Abdominal Exam: Soft, Normal Bowel Sounds. absent: Distended, Firm, Guarding, Rigid, Tenderness, Rebound - Extremities Exam Extremities Exam: Full ROM, Normal Capillary Refill, Normal Inspection, Tenderness (R ankle tenderness) Additional comments: Left lower extremity mass palpated in posterior lateral calf. Decreased erythema, edema noted. - Back Exam Back Exam: NORMAL INSPECTION - Neurological Exam Neurological Exam: Alert, Awake, Oriented x3 - Skin Skin Exam: Dry, Intact Additional comments: improved on left lower extremity close to ankle Assessment and Plan - Assessment and Plan (Free Text) Assessment: 87 yo [place]ian M with PMHx of R renal cell carcinoma s/p R nephrectomy, HTN, HLD, COPD, BPH, DILLON presenting with diffuse LLE cellulitis, increased hematoma noted on LLE with no inciting trauma endorsed by patient. Plan: LLE hematoma, Diffuse LLE cellulitis - cellulitis resolved - pt is afebrile, no leukocytosis noted - ecchymosis and edema improving on Left distal medial calf - new tenderness, slight ecchymosis noted to R ankle- likely 2/2 to intensive physical therapy yesterday Imaging - f/u R ankle XR (12/25) - CT Lower extremity (12/15): diffuse LLE cellulitis - LE U/S (12/15): no evidence of DVT, 1.7x 6.4 cm heterogeneous collection lateral to the knee, differential includes hematoma - LE U/S (12/17): no evidence of DVT, 5 cm heterogeneous collection in media calf, differential includes hematoma - LE U/S (12/21): no evidence of DVT, large hematoma 17.33 x 8.6 x 6.1 cm - MRI LE (12/18): 5.8x3.0x12.2 cm ovoid collection within posterior medial calf, appears to be about and/or originate at the fascial interface of the medial head of the gastrocnemius muscle. Apparent compressive mass effect on the medial head of the gastrocnemius muscle. Uncertain etiology, may represent a large hematoma. Additional consideration includes abscess collection vs underlying lesion. - CT w/o contrast LLE(12/21): no interval changes in hematoma - Ok to resume DVT prophylaxis and Aspirin 81mg; Should be stopped if patient develops worsening pain or increase in size of hematoma - Per Heme/[facility] (Dr. Guajardo) recs appreciated - f/u on coagulopathy panel per heme/onc consult given large hematoma with no hx of trauma or inciting event -Tylenol 600 mg q6 PRN for pain - Percocet q 6 PRN for pain Nonproductive Cough - Spiriva QD - Robitussin q6 PRN - Albuterol q6 PRN CKD - stable; will continue to monitor AM labs - last Cr 1.6 - avoid nephrotoxic medications HTN - Continue home Losartan HLD - Continue home Lipitor 10 mg COPD/DILLON -Continue supplemental O2, Spiriva BPH - Continue home finasteride 5 mg - Continue home Doxazosin 8 mg PO HS PPx, Diet, Disposition -GI PPx: Protonix 40, 0600 SC -Diet: HHD -Dispo: continue with gorge wrap to Left leg, f/u PT recs. continue with percocet for pain. CKD stable, will continue to monitor labs. Pt approved for 8 days total in TRCU and then will go home w serivices per PT recs. Case discussed with Dr. Elif Paulino DO, PGY-1 <Bia Asencio - Last Filed: 12/27/17 08:13> Objective - Vital Signs/Intake and Output Vital Signs (last 24 hours): Temp Pulse Resp BP Pulse Ox 98.6 F 68 20 120/69 98 12/26/17 16:00 12/26/17 16:00 12/26/17 16:00 12/26/17 16:00 12/26/17 16:00 - Medications Medications: Current Medications Albuterol Sulfate (Albuterol 0.042% Inhal Tanisha (1.25mg/3ml) Ud) 1.25 mg IH [id number] PRN PRN Reason: Shortness of Breath Aspirin (Aspirin Chewable) 81 mg PO 0800 VAN Last Admin: 12/27/17 07:46 Dose: 81 mg Atorvastatin Calcium (Lipitor) 10 mg PO HS VAN; Protocol Last Admin: 12/26/17 21:17 Dose: 10 mg Finasteride (Proscar) 5 mg PO 0600 VAN; Protocol Last Admin: 12/27/17 05:20 Dose: 5 mg Guaifenesin (Robitussin) 100 mg PO Q6H PRN; Protocol PRN Reason: Cough Last Admin: 12/26/17 21:19 Dose: 100 mg Home Med (Home Med) 1 unit PO HS VAN Last Admin: 12/26/17 21:17 Dose: 1 unit Losartan Potassium (Cozaar) 100 mg PO DAILY VAN; Protocol Last Admin: 12/26/17 09:54 Dose: Not Given Pantoprazole Sodium (Protonix Ec Tab) 40 mg PO 0600 VAN; Protocol Last Admin: 12/27/17 05:20 Dose: 40 mg Tiotropium [place] (Spiriva) 18 mcg IH DAILY VAN; Protocol Last Admin: 12/26/17 11:04 Dose: 18 mcg Attending/Attestation - Attestation I have personally seen and examined this patient.: Yes I have fully participated in the care of the patient.: Yes I have reviewed all pertinent clinical information, including history, physical exam and plan: Yes Notes (Text): 12/27/17 08:13 Medical record note made by the resident after discussion with my direction and input after the patient was personally seen and examined by me. I have reviewed the chart and agree that the record accurately reflects by personal performance of the history, physical exam, data review, and medical decision-making, in the course for the patient. I have also personally directed the plan of care
--- NOTE | 2017-12-25 14:28 | RAD ---
Date of service: 12/25/2017 PROCEDURE: Right Ankle Radiographs. HISTORY: r.o fracture COMPARISON: None available. FINDINGS: BONES: Normal. No fracture. JOINTS: Normal. No osteoarthritis. Ankle mortise maintained. Talar dome intact SOFT TISSUES: Normal. OTHER FINDINGS: None. IMPRESSION: Normal right ankle radiographs.
[2017-12-25] MEDS: DOXAZOSIN 8 MG PO SCH (21:39)
[2017-12-26] MEDS: Pantoprazole 40 mg EC Tab PO SCH (05:20)
[2017-12-26] MEDS: guaiFENesin 100 mg/5 ml Syrup UD PO PRN ×2 (05:20→21:19)
[2017-12-26] MEDS: Tiotropium 18 mcg Cap For Inhalation IH SCH (11:04)
[2017-12-26] MEDS: DOXAZOSIN 8 MG PO SCH (21:17)
[2017-12-27] MEDS: Pantoprazole 40 mg EC Tab PO SCH (05:20)
[2017-12-27] MEDS: Tiotropium 18 mcg Cap For Inhalation IH SCH (10:36)
[2017-12-27] MEDS: Cholecalciferol 1,000 INTLU TAB PO SCH (13:30)
--- NOTE | 2017-12-27 13:59 | CP.PCM.PN ---
<Beka Paulino - Last Filed: 12/27/17 15:32> Subjective - Date & Time of Evaluation Date of Evaluation: 12/27/17 Time of Evaluation: 08:15 - Subjective Subjective: PGY-1 Medicine Progress Note for Dr. Asencio Patient seen and examined at bedside, in no acute distress. No acute overnight events reported. Patient progressing with physical therapy, continues to do well. Endorses improvement of calf pain. Currently complaining of mild L tibial pain; we discussed evaluating his vitamin levels. No fevers/chills, headaches, dizziness, changes in vision, chest pain, palpitations, sob, cough, abdominal pain, n/v/d/c, dysuria, or changes in stool. Objective - Vital Signs/Intake and Output Vital Signs (last 24 hours): Temp Pulse Resp BP Pulse Ox 97 F L 94 H 16 116/64 97 12/27/17 10:00 12/27/17 10:00 12/27/17 10:00 12/27/17 10:00 12/27/17 10:00 - Medications Medications: Current Medications Albuterol Sulfate (Albuterol 0.042% Inhal Tanisha (1.25mg/3ml) Ud) 1.25 mg IH [id number] PRN PRN Reason: Shortness of Breath Aspirin (Aspirin Chewable) 81 mg PO 0800 [facility] Last Admin: 12/27/17 07:46 Dose: 81 mg Atorvastatin Calcium (Lipitor) 10 mg PO HS [facility]AN; Protocol Last Admin: 12/26/17 21:17 Dose: 10 mg Cholecalciferol (Vitamin D) 1,000 intlu PO DAILY [facility] Last Admin: 12/27/17 13:30 Dose: 1,000 intlu Finasteride (Proscar) 5 mg PO 0600 [facility]; Protocol Last Admin: 12/27/17 05:20 Dose: 5 mg Guaifenesin (Robitussin) 100 mg PO Q6H PRN; Protocol PRN Reason: Cough Last Admin: 12/26/17 21:19 Dose: 100 mg Home Med (Home Med) 1 unit PO HS VAN Last Admin: 12/26/17 21:17 Dose: 1 unit Losartan Potassium (Cozaar) 100 mg PO DAILY [facility]; Protocol Last Admin: 12/27/17 10:37 Dose: 100 mg Pantoprazole Sodium (Protonix Ec Tab) 40 mg PO 0600 [facility]; Protocol Last Admin: 12/27/17 05:20 Dose: 40 mg Tiotropium [place] (Spiriva) 18 mcg IH DAILY [facility]; Protocol Last Admin: 12/27/17 10:36 Dose: 18 mcg - Constitutional Appears: Non-toxic, No Acute Distress - Head Exam Head Exam: ATRAUMATIC, NORMAL INSPECTION, NORMOCEPHALIC - Eye Exam Eye Exam: EOMI, Normal appearance Pupil Exam: NORMAL ACCOMODATION - ENT Exam ENT Exam: Mucous Membranes Moist, Normal Exam - Neck Exam Neck Exam: Full ROM, Normal Inspection - Respiratory Exam Respiratory Exam: Clear to Ausculation Bilateral, NORMAL BREATHING PATTERN. absent: Rales, Rhonchi, Wheezes, Respiratory Distress, Stridor - Cardiovascular Exam Cardiovascular Exam: REGULAR RHYTHM, +S1, +S2 - GI/Abdominal Exam GI & Abdominal Exam: Soft, Normal Bowel Sounds. absent: Distended, Firm, Guarding, Rigid, Tenderness, Rebound - Extremities Exam Extremities Exam: Calf Tenderness (improved), Full ROM, Normal Capillary Refill Additional comments: Mass palpated in posterior lateral calf decreased in size. Decreased erythema, edema noted. - Back Exam Back Exam: NORMAL INSPECTION - Neurological Exam Neurological Exam: Alert, Awake, CN II-XII Intact, Oriented x3 - Psychiatric Exam Psychiatric exam: Normal Affect, Normal Mood - Skin Skin Exam: Dry, Intact, Normal Color, Warm Assessment and Plan - Assessment and Plan (Free Text) Assessment: 87 yo [place] M with PMHx of R renal cell carcinoma s/p R nephrectomy, HTN, HLD, COPD, BPH, DILLON presenting with diffuse LLE cellulitis, increased hematoma noted on LLE with no inciting trauma endorsed by patient, approved for 8 day course of TCU therapy to be completed on Monday. Plan: LLE hematoma, Diffuse LLE cellulitis - cellulitis resolved - pt is afebrile, no leukocytosis noted - ecchymosis and edema improving on Left distal medial calf - new tenderness, slight ecchymosis noted to R ankle- likely 2/2 to intensive physical therapy yesterday Imaging - f/u R ankle XR (12/25) - CT Lower extremity (12/15): diffuse LLE cellulitis - LE U/S (12/15): no evidence of DVT, 1.7x 6.4 cm heterogeneous collection lateral to the knee, differential includes hematoma - LE U/S (12/17): no evidence of DVT, 5 cm heterogeneous collection in media calf, differential includes hematoma - LE U/S (12/21): no evidence of DVT, large hematoma 17.33 x 8.6 x 6.1 cm - MRI LE (12/18): 5.8x3.0x12.2 cm ovoid collection within posterior medial calf, appears to be about and/or originate at the fascial interface of the medial head of the gastrocnemius muscle. Apparent compressive mass effect on the medial head of the gastrocnemius muscle. Uncertain etiology, may represent a large hematoma. Additional consideration includes abscess collection vs underlying lesion. - CT w/o contrast LLE(12/21): no interval changes in hematoma - Ok to resume DVT prophylaxis and Aspirin 81mg; Should be stopped if patient develops worsening pain or increase in size of hematoma - Per [facility] (Dr. Guajardo) recs appreciated - f/u on coagulopathy panel per heme/onc consult given large hematoma with no hx of trauma or inciting event -Tylenol 600 mg q6 PRN for pain - Percocet q 6 PRN for pain L tibial pain --f/u serum Vitamin D levels --Vit D 1000 PO daily --encourage ambulation Nonproductive Cough - Spiriva QD - Robitussin q6 PRN - Albuterol q6 PRN CKD - stable; will continue to monitor AM labs - last Cr 1.6 - avoid nephrotoxic medications HTN - Continue home Losartan HLD - Continue home Lipitor 10 mg COPD/DILLON -Continue supplemental O2, Spiriva BPH - Continue home finasteride 5 mg - Continue home Doxazosin 8 mg PO HS PPx, Diet, Disposition -GI PPx: Protonix 40, 0600 [facility] -Diet: HHD -Dispo: continue with gorge wrap to Left leg, f/u PT recs. continue with percocet for pain. CKD stable, will continue to monitor labs. Pt approved for 8 days total in [facility] and then will go home w services per PT recs. Case discussed with Dr. Elif Paulino DO, PGY-1 <Bia Asencio - Last Filed: 12/30/17 11:59> Objective - Vital Signs/Intake and Output Vital Signs (last 24 hours): Temp Pulse Resp BP Pulse Ox 97.9 F 89 18 125/70 95 12/29/17 06:00 12/30/17 10:55 12/29/17 06:00 12/30/17 10:55 12/29/17 12:13 - Medications Medications: Current Medications Albuterol Sulfate (Albuterol 0.042% Inhal Tanisha (1.25mg/3ml) Ud) 1.25 mg IH [id number] PRN PRN Reason: Shortness of Breath Aspirin (Aspirin Chewable) 81 mg PO 0800 [facility] Last Admin: 12/30/17 08:51 Dose: 81 mg Atorvastatin Calcium (Lipitor) 10 mg PO HS [facility]; Protocol Last Admin: 12/29/17 21:21 Dose: 10 mg Finasteride (Proscar) 5 mg PO 0600 [facility]; Protocol Last Admin: 12/30/17 06:01 Dose: 5 mg Guaifenesin (Robitussin) 100 mg PO Q6H PRN; Protocol PRN Reason: Cough Last Admin: 12/29/17 05:22 Dose: 100 mg Home Med (Home Med) 1 unit PO HS [facility] Last Admin: 12/29/17 21:21 Dose: 1 unit Losartan Potassium (Cozaar) 75 mg PO DAILY [facility]; Protocol Last Admin: 12/30/17 10:55 Dose: 75 mg Pantoprazole Sodium (Protonix Ec Tab) 40 mg PO 0600 [facility]; Protocol Last Admin: 12/30/17 06:01 Dose: 40 mg Tiotropium [place] (Spiriva) 18 mcg IH DAILY [facility]; Protocol Last Admin: 12/30/17 10:38 Dose: 18 mcg - Labs Labs: 12/29/17 08:10 12/29/17 08:10 Attending/Attestation - Attestation I have personally seen and examined this patient.: Yes I have fully participated in the care of the patient.: Yes I have reviewed all pertinent clinical information, including history, physical exam and plan: Yes Notes (Text): 12/30/17 11:59 Medical record note made by the resident after discussion with my direction and input after the patient was personally seen and examined by me. I have reviewed the chart and agree that the record accurately reflects by personal performance of the history, physical exam, data review, and medical decision-making, in the course for the patient. I have also personally directed the plan of care.
[2017-12-27] MEDS: DOXAZOSIN 8 MG PO SCH (21:19)
[2017-12-27] MEDS: guaiFENesin 100 mg/5 ml Syrup UD PO PRN (21:20)
[2017-12-28] MEDS: Pantoprazole 40 mg EC Tab PO SCH (05:48)
[2017-12-28 07:28] VITALS: RESP 18
[2017-12-28] MEDS: Tiotropium 18 mcg Cap For Inhalation IH SCH (10:17)
[2017-12-28] MEDS: Cholecalciferol 1,000 INTLU TAB PO SCH (10:17)
[2017-12-28] MEDS: guaiFENesin 100 mg/5 ml Syrup UD PO PRN ×2 (10:18→17:35)
[2017-12-28] MEDS: DOXAZOSIN 8 MG PO SCH (21:39)
[2017-12-29] MEDS: Pantoprazole 40 mg EC Tab PO SCH (05:20)
[2017-12-29] MEDS: guaiFENesin 100 mg/5 ml Syrup UD PO PRN (05:22)
--- NOTE | 2017-12-29 08:00 | CP.PCM.PN ---
<Beka Paulino - Last Filed: 12/29/17 12:33> Subjective - Date & Time of Evaluation Date of Evaluation: 12/29/17 Time of Evaluation: 08:00 - Subjective Subjective: PGY-1 Medicine Progress Note for Dr. Asencio Patient seen and examined at bedside, resting comfortably and in no acute distress. No acute overnight events reported. Left leg wrapped in marsha bandage, elevated on pillows. Gait slow but steady per nursing, voiding regularly. No acute complaints at this time. Objective - Vital Signs/Intake and Output Vital Signs (last 24 hours): Temp Pulse Resp BP Pulse Ox 97.9 F 97 H 18 122/76 94 L 12/29/17 06:00 12/29/17 06:00 12/29/17 06:00 12/29/17 06:00 12/29/17 06:00 - Medications Medications: Current Medications Albuterol Sulfate (Albuterol 0.042% Inhal Tanisha (1.25mg/3ml) Ud) 1.25 mg IH [id number] PRN PRN Reason: Shortness of Breath Aspirin (Aspirin Chewable) 81 mg PO 0800 [facility] Last Admin: 12/28/17 08:53 Dose: 81 mg Atorvastatin Calcium (Lipitor) 10 mg PO HS [facility]; Protocol Last Admin: 12/28/17 21:39 Dose: 10 mg Cholecalciferol (Vitamin D) 1,000 intlu PO DAILY [facility] Last Admin: 12/28/17 10:17 Dose: 1,000 intlu Finasteride (Proscar) 5 mg PO 0600 [facility]; Protocol Last Admin: 12/29/17 05:21 Dose: 5 mg Guaifenesin (Robitussin) 100 mg PO Q6H PRN; Protocol PRN Reason: Cough Last Admin: 12/29/17 05:22 Dose: 100 mg Home Med (Home Med) 1 unit PO HS [facility] Last Admin: 12/28/17 21:39 Dose: 1 unit Losartan Potassium (Cozaar) 75 mg PO DAILY [facility]; Protocol Pantoprazole Sodium (Protonix Ec Tab) 40 mg PO 0600 [facility]; Protocol Last Admin: 12/29/17 05:20 Dose: 40 mg Tiotropium [place] (Spiriva) 18 mcg IH DAILY [facility]; Protocol Last Admin: 12/28/17 10:17 Dose: 18 mcg - Constitutional Appears: Non-toxic, No Acute Distress - Head Exam Head Exam: ATRAUMATIC, NORMAL INSPECTION, NORMOCEPHALIC - Eye Exam Eye Exam: EOMI, Normal appearance Pupil Exam: NORMAL ACCOMODATION - ENT Exam ENT Exam: Mucous Membranes Moist, Normal Exam - Neck Exam Neck Exam: Full ROM, Normal Inspection - Respiratory Exam Respiratory Exam: Clear to Ausculation Bilateral, NORMAL BREATHING PATTERN. absent: Rales, Rhonchi, Wheezes, Respiratory Distress, Stridor - Cardiovascular Exam Cardiovascular Exam: REGULAR RHYTHM, +S1, +S2 - GI/Abdominal Exam GI & Abdominal Exam: Soft, Normal Bowel Sounds. absent: Distended, Firm, Guarding, Rigid, Tenderness, Organomegaly, Rebound - Extremities Exam Extremities Exam: Full ROM, Normal Capillary Refill Additional comments: L leg wrapped in MARSHA bandage c/d/i, LLE elevated on pillows. - Back Exam Back Exam: NORMAL INSPECTION - Neurological Exam Neurological Exam: Alert, Awake, CN II-XII Intact, Oriented x3 - Psychiatric Exam Psychiatric exam: Normal Affect, Normal Mood - Skin Skin Exam: Dry, Intact, Normal Color, Warm Assessment and Plan - Assessment and Plan (Free Text) Assessment: 87 yo Russian M with PMHx of R renal cell carcinoma s/p R nephrectomy, HTN, HLD, COPD, BPH, DILLON presenting with diffuse LLE cellulitis, increased hematoma noted on LLE with no inciting trauma endorsed by patient, approved for 8 day course of TCU therapy. Final day of TCU tomorrow. Plan: LLE hematoma - cellulitis resolved - pt is afebrile, no leukocytosis noted - ecchymosis and edema improving on Left distal medial calf - new tenderness, slight ecchymosis noted to R ankle- likely 2/2 to intensive physical therapy yesterday Imaging - f/u R ankle XR (12/25) - CT Lower extremity (12/15): diffuse LLE cellulitis - LE U/S (12/15): no evidence of DVT, 1.7x 6.4 cm heterogeneous collection lateral to the knee, differential includes hematoma - LE U/S (12/17): no evidence of DVT, 5 cm heterogeneous collection in media calf, differential includes hematoma - LE U/S (12/21): no evidence of DVT, large hematoma 17.33 x 8.6 x 6.1 cm - MRI LE (12/18): 5.8x3.0x12.2 cm ovoid collection within posterior medial calf, appears to be about and/or originate at the fascial interface of the medial head of the gastrocnemius muscle. Apparent compressive mass effect on the medial head of the gastrocnemius muscle. Uncertain etiology, may represent a large hematoma. Additional consideration includes abscess collection vs underlying lesion. - CT w/o contrast LLE(12/21): no interval changes in hematoma - Ok to resume DVT prophylaxis and Aspirin 81mg; Should be stopped if patient develops worsening pain or increase in size of hematoma - Per [facility] (Dr. Guajardo) recs appreciated - f/u on coagulopathy panel per heme/onc consult given large hematoma with no hx of trauma or inciting event -Tylenol 600 mg q6 PRN for pain - Percocet q 6 PRN for pain L tibial pain --serum Vitamin D levels wnl --encourage ambulation Nonproductive Cough - Spiriva QD - Robitussin q6 PRN - Albuterol q6 PRN CKD - stable; will continue to monitor AM labs - last Cr 1.7 - avoid nephrotoxic medications HTN - Continue home Losartan HLD - Continue home Lipitor 10 mg COPD/DILLON -Continue supplemental O2, Spiriva BPH - Continue home finasteride 5 mg - Continue home Doxazosin 8 mg PO HS PPx, Diet, Disposition -GI PPx: Protonix 40, 0600 [facility] -Diet: HHD -Dispo: continue with marsha wrap to Left leg, f/u PT recs. continue with percocet for pain. CKD stable, will continue to monitor labs. Pt approved for 8 days total in [facility] [place] and then will go home w services per PT recs. Case discussed with Dr. Elif Paulino DO, PGY-1 <Bia Asencio - Last Filed: 12/30/17 12:01> Objective - Vital Signs/Intake and Output Vital Signs (last 24 hours): Temp Pulse Resp BP Pulse Ox 97.9 F 89 18 125/70 95 12/29/17 06:00 12/30/17 10:55 12/29/17 06:00 12/30/17 10:55 12/29/17 12:13 - Medications Medications: Current Medications Albuterol Sulfate (Albuterol 0.042% Inhal Tanisha (1.25mg/3ml) Ud) 1.25 mg IH [id number] PRN PRN Reason: Shortness of Breath Aspirin (Aspirin Chewable) 81 mg PO 0800 [facility] Last Admin: 12/30/17 08:51 Dose: 81 mg Atorvastatin Calcium (Lipitor) 10 mg PO HS [facility]; Protocol Last Admin: 12/29/17 21:21 Dose: 10 mg Finasteride (Proscar) 5 mg PO 0600 [facility]; Protocol Last Admin: 12/30/17 06:01 Dose: 5 mg Guaifenesin (Robitussin) 100 mg PO Q6H PRN; Protocol PRN Reason: Cough Last Admin: 12/29/17 05:22 Dose: 100 mg Home Med (Home Med) 1 unit PO HS [facility] Last Admin: 12/29/17 21:21 Dose: 1 unit Losartan Potassium (Cozaar) 75 mg PO DAILY [facility]; Protocol Last Admin: 12/30/17 10:55 Dose: 75 mg Pantoprazole Sodium (Protonix Ec Tab) 40 mg PO 0600 [facility]; Protocol Last Admin: 12/30/17 06:01 Dose: 40 mg Tiotropium [place] (Spiriva) 18 mcg IH DAILY [facility]; Protocol Last Admin: 12/30/17 10:38 Dose: 18 mcg - Labs Labs: 12/29/17 08:10 12/29/17 08:10 Attending/Attestation - Attestation I have personally seen and examined this patient.: Yes I have fully participated in the care of the patient.: Yes I have reviewed all pertinent clinical information, including history, physical exam and plan: Yes Notes (Text): 12/30/17 12:00 Medical record note made by the resident after discussion with my direction and input after the patient was personally seen and examined by me. I have reviewed the chart and agree that the record accurately reflects by personal performance of the history, physical exam, data review, and medical decision-making, in the course for the patient. I have also personally directed the plan of care. 87 year old male with past medical history of renal cell cancer s/p right nephrectomy, hypertension, and dylipidemia was initially admitted to [facility] inpatient with left leg pain and swelling. He was found to have left leg cellulitis and possible hematoma on CT, MRI and LE dopplers which was also negative for DVT. He was seen by orthopedic and surgery who recommended CT venogram which patient refused. Cellulitis improved and antibiotics were discontinued. He was seen by IR who recommended compression stockings, analgesics and physical therapy for which patient was transferred to TCU. Continue with compression stocking to leg. Continue with physical therapy. Continue with percocet prn for pain. Patient is on losartan for hypertension; dose is reduced to 75 mg po daily as patient blood pressure is running on lower side, we will monitor and adjust medication.
[2017-12-29 08:20] LABS: BASO # 0.02 K/mm3 (0.0-2.0); BASO % 0.3 % (0.0-3.0); EOS # 0.8 (0.0-0.7); EOS % 13.4 % (1.5-5.0); GRAN # 2.54 (1.4-6.5); GRAN % 44.4 % (50.0-68.0); HEMOGLOBIN 9.9 g/dL (14.0-18.0); LYMPH # 1.9 (1.2-3.4); LYMPH % 32.5 % (22.0-35.0); MEAN CELL VOLUME 92.8 fl (80.0-105.0); MEAN CORPUSCULAR HEMOGLOBIN 30.8 pg (25.0-35.0); MEAN CORPUSCULAR HGB CONC 33.2 g/dl (31.0-37.0); MEAN PLATELET VOLUME 9.8 fl (7.0-11.0); MONO # 0.5 (0.1-0.6); MONO % 9.4 % (1.0-6.0); RBC 3.21 10^6/uL (3.5-6.1); RED CELL DISTRIBUTION WIDTH 13.6 % (11.5-14.5); WHITE BLOOD COUNT 5.7 10^3/uL (4.5-11.0)
[2017-12-29 08:41] LABS: ALBUMIN 3.3 g/dL (3.0-4.8); CALCIUM 8.7 mg/dL (8.4-10.5)
[2017-12-29] MEDS: Tiotropium 18 mcg Cap For Inhalation IH SCH (09:21)
[2017-12-29] MEDS: Cholecalciferol 1,000 INTLU TAB PO SCH (10:14)
[2017-12-29] MEDS: DOXAZOSIN 8 MG PO SCH (21:21)
[2017-12-30] MEDS: Pantoprazole 40 mg EC Tab PO SCH (06:01)
[2017-12-30] MEDS: Tiotropium 18 mcg Cap For Inhalation IH SCH (10:38)
[2017-12-30] MEDS: DOXAZOSIN 8 MG PO SCH (21:28)
[2017-12-30 22:53] VITALS: BP 133/76; PULSE 80; TEMP 98.2; O2SAT 96
[2017-12-31] MEDS: Pantoprazole 40 mg EC Tab PO SCH (05:46)
--- NOTE | 2017-12-31 07:39 | CP.PCM.DIS ---
<LoraBeka - Last Filed: 12/31/17 15:53> Provider - Provider Date of Admission: 12/22/17 14:07 Attending physician: Bia Asencio MD Primary care physician: Bia Asencio MD Time Spent in preparation of Discharge (in minutes): 40 Hospital Course - Lab Results Lab Results: Most Recent Lab Values WBC 5.7 10^3/uL (4.5-11.0) 12/29/17 08:10 RBC 3.21 10^6/uL (3.5-6.1) L 12/29/17 08:10 Hgb 9.9 g/dL (14.0-18.0) L 12/29/17 08:10 Hct 29.8 % (42.0-52.0) L 12/29/17 08:10 MCV 92.8 fl (80.0-105.0) 12/29/17 08:10 MCH 30.8 pg (25.0-35.0) 12/29/17 08:10 MCHC 33.2 g/dl (31.0-37.0) 12/29/17 08:10 RDW 13.6 % (11.5-14.5) 12/29/17 08:10 Plt Count 264 10^3/uL (120.0-450.0) 12/29/17 08:10 MPV 9.8 fl (7.0-11.0) 12/29/17 08:10 Gran % 44.4 % (50.0-68.0) L 12/29/17 08:10 Lymph % (Auto) 32.5 % (22.0-35.0) 12/29/17 08:10 Mcmullen % (Auto) 9.4 % (1.0-6.0) H 12/29/17 08:10 Eos % (Auto) 13.4 % (1.5-5.0) H 12/29/17 08:10 Baso % (Auto) 0.3 % (0.0-3.0) 12/29/17 08:10 Gran # 2.54 (1.4-6.5) 12/29/17 08:10 Lymph # (Auto) 1.9 (1.2-3.4) 12/29/17 08:10 Mcmullen # (Auto) 0.5 (0.1-0.6) 12/29/17 08:10 Eos # (Auto) 0.8 (0.0-0.7) H 12/29/17 08:10 Baso # (Auto) 0.02 K/mm3 (0.0-2.0) 12/29/17 08:10 Sodium 138 mmol/L (132-148) 12/29/17 08:10 Potassium 4.3 mmol/L (3.6-5.0) 12/29/17 08:10 Chloride 109 mmol/L (98-107) H 12/29/17 08:10 Carbon Dioxide 23 mmol/L (21-33) 12/29/17 08:10 Anion Gap 10 (10-20) 12/29/17 08:10 BUN 34 mg/dL (7-21) H 12/29/17 08:10 Creatinine 1.7 mg/dl (0.8-1.5) H 12/29/17 08:10 Est GFR ( Amer) 47 12/29/17 08:10 Est GFR (Non-Af Amer) 38 12/29/17 08:10 Random Glucose 81 mg/dL (70-110) 12/29/17 08:10 Calcium 8.7 mg/dL (8.4-10.5) 12/29/17 08:10 Total Bilirubin 0.4 mg/dL (0.2-1.3) 12/29/17 08:10 AST 23 U/L (17-59) 12/29/17 08:10 ALT 23 U/L (7-56) 12/29/17 08:10 Alkaline Phosphatase 75 U/L (38-126) 12/29/17 08:10 Total Protein 6.7 g/dL (5.8-8.3) 12/29/17 08:10 Albumin 3.3 g/dL (3.0-4.8) 12/29/17 08:10 Globulin 3.4 gm/dL 12/29/17 08:10 Albumin/Globulin Ratio 1.0 (1.1-1.8) L 12/29/17 08:10 25-OH Vitamin D Total 44.0 NG/ML (30.0-100.0) 12/28/17 06:30 - Hospital Course Hospital Course: HPI: Patient is a 87 year old male with past medical history of renal cell cancer status-post right nephrectomy, hypertension, and dylipidemia who presented with left leg pain and swelling. He was found to have left leg cellulitis and possible hematoma on CT, MRI and LE dopplers which was also negative for DVT. He was seen by orthopedic and surgery who recommended CT venogram which patient refused. Cellulitis improved and antibiotics were discontinued. He was seen by IR who recommended compression stockings, analgesics and physical therapy for which patient was transferred to TCU. During course of admission, patient clinically improved while in TCU. Patient was in no acute distress, continued to breathe easily and unlabored on room air. Left lower extremity was kept wrapped in MARSHA bandage, elevated while resting in bed. He continued to work with physical therapy for strength and conditioning, was able to walk steadily with no shortness of breath. Swelling and pain diminished in the lower extremity over time, erythema subsided. Patient is medically stable for discharge home, as per Dr. Asencio. Patient is instructed to take all home medications as prescribed. He is recommended to co gabriella physical therapy in the outpatient setting. A script has been provided. Please follow up with your primary care provider within 1 week of discharge for continued care. Continue to keep leg wrapped in marsha bandage, elevate on pillows when lying down. If symptoms worsen, please return to the ED. The following is a summary of hospital course. For further detail, please refer to EMR. Discharge Exam - Head Exam Head Exam: ATRAUMATIC, NORMAL INSPECTION, NORMOCEPHALIC - Eye Exam Eye Exam: EOMI, Normal appearance Pupil Exam: NORMAL ACCOMODATION - ENT Exam ENT Exam: Mucous Membranes Dry, Normal Exam - Neck Exam Neck exam: Full Rom, Normal Inspection - Respiratory Exam Respiratory Exam: Clear to PA & Lateral, NORMAL BREATHING PATTERN, UNREMARKABLE. absent: Accessory Muscle Use, Rales, Rhonchi, Wheezes, Respiratory Distress, Stridor - Cardiovascular Exam Cardiovascular Exam: REGULAR RHYTHM, +S1, +S2 - GI/Abdominal Exam GI & Abdominal Exam: Normal Bowel Sounds, Soft, Unremarkable. absent: Distended, Firm, Guarding, Organomegaly, Rebound, Rigid, Tenderness - Extremities Exam Extremities exam: normal capillary refill, pedal pulses present Additional comments: LLE with marsha wrap, elevated. Diminished swelling, mild TTP. - Back Exam Back exam: NORMAL INSPECTION - Neurological Exam Neurological exam: Alert, CN II-XII Intact, Normal Gait, Oriented x3 - Psychiatric Exam Psychiatric exam: Normal Affect, Normal Mood - Skin Skin Exam: Dry, Intact, Normal Color, Warm Discharge Plan - Discharge Medications Prescriptions: RX: Atorvastatin [Lipitor] 10 mg PO HS #30 tab RX: Finasteride [Proscar] 5 mg PO DAILY #30 tab RX: Losartan [Cozaar] 100 mg PO DAILY #30 tab RX: Pantoprazole [Protonix EC Tab] 40 mg PO 0600 #30 ect RX: Tiotropium [Spiriva] 18 mcg IH DAILY #1 cap - Follow Up Plan Condition: GOOD Disposition: HOME/ ROUTINE Instructions: Cellulitis (DC), Cellulitis (GEN) Additional Instructions: Patient is medically stable for discharge home, as per Dr. Asencio. Patient is instructed to take all home medications as prescribed. Patient has been given script for outpatient physical therapy. Please follow up with your primary care provider (Dr. Vazquez) within 1 week of discharge for continued care. Continue to keep leg wrapped in marsha bandage, elevate on pillows when lying down. If symptoms worsen, please return to the ED. Referrals: Bia Asencio MD [Primary Care Provider] - <Bia Asencio - Last Filed: 12/31/17 17:28> Provider - Provider Date of Admission: 12/22/17 14:07 Attending physician: Bia Asencio MD Primary care physician: Bia Asencio MD Hospital Course - Lab Results Lab Results: Most Recent Lab Values WBC 5.7 10^3/uL (4.5-11.0) 12/29/17 08:10 RBC 3.21 10^6/uL (3.5-6.1) L 12/29/17 08:10 Hgb 9.9 g/dL (14.0-18.0) L 12/29/17 08:10 Hct 29.8 % (42.0-52.0) L 12/29/17 08:10 MCV 92.8 fl (80.0-105.0) 12/29/17 08:10 MCH 30.8 pg (25.0-35.0) 12/29/17 08:10 MCHC 33.2 g/dl (31.0-37.0) 12/29/17 08:10 RDW 13.6 % (11.5-14.5) 12/29/17 08:10 Plt Count 264 10^3/uL (120.0-450.0) 12/29/17 08:10 MPV 9.8 fl (7.0-11.0) 12/29/17 08:10 Gran % 44.4 % (50.0-68.0) L 12/29/17 08:10 Lymph % (Auto) 32.5 % (22.0-35.0) 12/29/17 08:10 Mcmullen % (Auto) 9.4 % (1.0-6.0) H 12/29/17 08:10 Eos % (Auto) 13.4 % (1.5-5.0) H 12/29/17 08:10 Baso % (Auto) 0.3 % (0.0-3.0) 12/29/17 08:10 Gran # 2.54 (1.4-6.5) 12/29/17 08:10 Lymph # (Auto) 1.9 (1.2-3.4) 12/29/17 08:10 Mcmullen # (Auto) 0.5 (0.1-0.6) 12/29/17 08:10 Eos # (Auto) 0.8 (0.0-0.7) H 12/29/17 08:10 Baso # (Auto) 0.02 K/mm3 (0.0-2.0) 12/29/17 08:10 Sodium 138 mmol/L (132-148) 12/29/17 08:10 Potassium 4.3 mmol/L (3.6-5.0) 12/29/17 08:10 Chloride 109 mmol/L (98-107) H 12/29/17 08:10 Carbon Dioxide 23 mmol/L (21-33) 12/29/17 08:10 Anion Gap 10 (10-20) 12/29/17 08:10 BUN 34 mg/dL (7-21) H 12/29/17 08:10 Creatinine 1.7 mg/dl (0.8-1.5) H 12/29/17 08:10 Est GFR ( Amer) 47 12/29/17 08:10 Est GFR (Non-Af Amer) 38 12/29/17 08:10 Random Glucose 81 mg/dL (70-110) 12/29/17 08:10 Calcium 8.7 mg/dL (8.4-10.5) 12/29/17 08:10 Total Bilirubin 0.4 mg/dL (0.2-1.3) 12/29/17 08:10 AST 23 U/L (17-59) 12/29/17 08:10 ALT 23 U/L (7-56) 12/29/17 08:10 Alkaline Phosphatase 75 U/L (38-126) 12/29/17 08:10 Total Protein 6.7 g/dL (5.8-8.3) 12/29/17 08:10 Albumin 3.3 g/dL (3.0-4.8) 12/29/17 08:10 Globulin 3.4 gm/dL 12/29/17 08:10 Albumin/Globulin Ratio 1.0 (1.1-1.8) L 12/29/17 08:10 25-OH Vitamin D Total 44.0 NG/ML (30.0-100.0) 12/28/17 06:30 Attending/Attestation - Attestation I have personally seen and examined this patient.: Yes I have fully participated in the care of the patient.: Yes I have reviewed all pertinent clinical information, including history, physical exam and plan: Yes Notes (Text): 12/31/17 17:26 Medical record note made by the resident after discussion with my direction and input after the patient was personally seen and examined by me. I have reviewed the chart and agree that the record accurately reflects by personal performance of the history, physical exam, data review, and medical decision-making, in the course for the patient. I have also personally directed the plan of care. 87 year old male with past medical history of renal cell cancer s/p right nephrectomy, hypertension, and dylipidemia was initially admitted [place] [facility] with left leg pain and swelling. He was found to have left leg cellulitis and possible hematoma on CT, MRI and LE dopplers which was also negative for DVT. He was seen by orthopedic and surgery who recommended CT venogram which patient refused. Cellulitis was improved and antibiotics were discontinued. He was seen by IR who recommended compression stockings, analgesics and physical therapy for which patient was admitted to TCU for rehabilitation. Patient is feeling better.Leg pain has improved, he will be discharged home and will have out patient physical therapy. Patient will follow up with his PCP . Management plan was discussed in detail with patient. Education was provided.
[2017-12-31] MEDS: Tiotropium 18 mcg Cap For Inhalation IH SCH (10:18)
== END 2017-12-31 13:38 | disposition home or self-care (01) | DRG 603 ==
LOC: TRCU 14:07
PROVIDERS: ADMIT Internal Medicine; ATTEND Internal Medicine
PROC: F07Z9FZ Gait Training/Functional Ambulation Treatment using Assistive, Adaptive, Supportive or Protective Equipment (ICD-10-PCS; principal; 2017-12-23)
PROC: F07M6ZZ Therapeutic Exercise Treatment of Musculoskeletal System - Whole Body (ICD-10-PCS; 2017-12-23)
PROC: F08Z2ZZ Grooming/Personal Hygiene Treatment (ICD-10-PCS; 2017-12-23)
PROC: F08Z1ZZ Dressing Techniques Treatment (ICD-10-PCS; 2017-12-23)
PROC: F08Z0ZZ Bathing/Showering Techniques Treatment (ICD-10-PCS; 2017-12-23)
DX: L03.116 Cellulitis of left lower limb (principal); E78.00 Pure hypercholesterolemia, unspecified; E78.5 Hyperlipidemia, unspecified; G47.33 Obstructive sleep apnea (adult) (pediatric); I10 Essential (primary) hypertension; J44.9 Chronic obstructive pulmonary disease, unspecified; N40.0 Benign prostatic hyperplasia without lower urinary tract symptoms; Z85.528 Personal history of other malignant neoplasm of kidney; Z90.5 Acquired absence of kidney; Z88.0 Allergy status to penicillin; Z88.2 Allergy status to sulfonamides